=== PATIENT | male | born 1945 | race African-American/Black ===

== ENCOUNTER 2016-06-17 10:44 | Emergency (ER) | payer MEDICARE, MEDICAID ==
[~2016-06-17] VITALS: Ht 177.8 cm; Wt 59.0 kg
[2016-06-17 10:48] VITALS: BP 141/83
== END 2016-06-17 13:10 | disposition home or self-care (01) ==
LOC: ER 11:21
DX: J02.8 Acute pharyngitis due to other specified organisms (principal); J44.9 Chronic obstructive pulmonary disease, unspecified; I10 Essential (primary) hypertension; K75.9 Inflammatory liver disease, unspecified; F17.200 Nicotine dependence, unspecified, uncomplicated; Z88.0 Allergy status to penicillin
CPT/HCPCS: 87070; 87430; 87804; 99284

== ENCOUNTER 2017-10-13 03:23 | Inpatient (IN) | payer MEDICARE, MEDICAID ==
[~2017-10-13] VITALS: Ht 177.8 cm; Wt 59.9 kg
[~2017-10-13 03:23] MED LIST: ALBU6.7H INH; ASPI-1159 PO; FLUT1DIS3 IH
[2017-10-13] MEDS ORDERED: METHYLPREDNISOLONE SOD SUCC 125 MG/2 ML VIAL IV STA (03:31)
[2017-10-13] MEDS ORDERED: ALBUTEROL (0.083%) 2.5MG/3ML NEB HHN STA (03:31)
[2017-10-13] MEDS ORDERED: IPRATROPIUM BROMIDE (0.02%) 0.5MG/2.5ML NEB HHN STA (03:31)
[2017-10-13] MEDS ORDERED: NITROGLYCERIN OINT 1GM/INCH UDPKT TD ONE (03:45)
[2017-10-13] MEDS ORDERED: MAGNESIUM 2 G PREMIX 50 ML IV ONE (03:45)
[2017-10-13] MEDS ORDERED: LEVOFLOXACIN 750MG PREMIX 150 ML IV ONE (03:45)
[2017-10-13] MEDS ORDERED: ASPIRIN 81MG TABLET PO ONE (03:45)
[2017-10-13 04:39] LABS: HEMATOCRIT. 40.6 % (42.0-52.0); HEMOGLOBIN. 13.5 g/dL (14.0-18.0); MEAN CORPUSCULAR HEMOGLOBIN 33.1 pg (28.0-32.0); MEAN CORPUSCULAR VOLUME 99.7 fL (80.0-94.0); MEAN PLATELET VOLUME 10.1 fl (7.4-10.4); PLATELET 151 x1000/uL (130-400); RED BLOOD CELL COUNT 4.07 mill/uL (4.7-6.1); RED CELL DISTRIBUTION WIDTH 13.8 % (11.6-14.6)
[2017-10-13 04:43] LABS: BG BASE EXCESS 4.8 mmol/L (-2.0-2.0); BG CARBOXYHEMOGLOBIN 1.1 % (0.5-1.5); BG DEOXYHEMOGLOBIN 4.5 % (0.0-5.0); BG FRACTION INSPIRED OXYGEN 28; BG HCO3 ACT 32.1 mmol/L (22.0-26.0); BG METHEMOGLOBIN 0.3 % (0.0-1.5); BG OXYGEN SATURATION 95.4 % (92.0-98.5); BG OXYHEMOGLOBIN 94.1 % (94.0-97.0); BG PCO2 59.5 mmHg (35.0-45.0); BG PO2 81.6 mmHg (75.0-100.0); BG SAMPLE SITE RIGHT RADIAL; BG TOTAL HEMOGLOBIN 13.9 g/dL (12.0-18.0); BG VENT MODE NC
[2017-10-13 04:46] LABS: CHLORIDE 98 mEq/L (98-107)
[2017-10-13 04:47] LABS: INR 1.1
[2017-10-13 04:50] LABS: ETHANOL BLOOD < 10 mg/dL
[2017-10-13 06:27] LABS: PLATELET ESTIMATE NORMAL
[2017-10-13 06:59] LABS: *COCAINE SCREEN URINE NEGATIVE (NEGATIVE); METHADONE URINE SCREEN NEGATIVE (NEGATIVE); OPIATES URINE SCREEN NEGATIVE (NEGATIVE); PHENCYCLIDINE URINE SCREEN NEGATIVE (NEGATIVE)
[2017-10-13 07:00] LABS: CANNABINOID URINE SCREEN PRESUMTIVE POSITIVE (NEGATIVE)
[2017-10-13 07:01] LABS: *AMPHETAMINES SCREEN URINE NEGATIVE (NEGATIVE); *BARBITURATES SCREEN URINE NEGATIVE (NEGATIVE); *BENZODIAZEPINES SCREEN URINE NEGATIVE (NEGATIVE)
[2017-10-13 10:30] VITALS: BP 111/58
[2017-10-13 12:00] VITALS: BP 111/58
[2017-10-13] MEDS ORDERED: ONDANSETRON HCL 4MG/2ML VIAL IV PRN (12:15)
[2017-10-13] MEDS ORDERED: IPRATROPIUM/ALBUTEROL 0.5-3(2.5)MG/3ML NEB INH PRN (12:15)
[2017-10-13] MEDS ORDERED: NA PHOS,M-B/NA PHOS,DI-BA ENEMA 118ML PR PRN (12:15)
[2017-10-13] MEDS ORDERED: NICOTINE 14MG PATCH TD NR (12:15)
[2017-10-13] MEDS ORDERED: DIPHENHYDRAMINE 50MG/ML VIAL IV PRN (12:15)
[2017-10-13] MEDS ORDERED: ACETAMINOPHEN 325MG TABLET PO PRN (12:15)
[2017-10-13] MEDS ORDERED: ACETAMINOPHEN 650MG SUPP PR PRN (12:15)
[2017-10-13] MEDS ORDERED: POTASSIUM CHLORIDE 20MEQ TABLET SR PO NR (12:15)
[2017-10-13] MEDS ORDERED: MAGNESIUM/ALUMINUM HYDROXIDE/SIMETHICONE 30ML UDC PO PRN (12:15)
[2017-10-13] MEDS ORDERED: ONDANSETRON 4MG ODT PO PRN (13:30)
[2017-10-13] MEDS: METHYLPREDNISOLONE SOD SUCC 40 MG/ML VIAL IV SCH ×2 (14:41→20:45)
[2017-10-13] MEDS: ENOXAPARIN 40MG/0.4ML SYR SUBCUT SCH (14:50)
[2017-10-13] MEDS: HYDROCODONE/ACETAMINOPHEN 5/325MG TABLET PO PRN ×2 (14:51→20:45)
[2017-10-13 16:00] VITALS: BP 107/56
[2017-10-13 20:00] VITALS: BP 112/64
[2017-10-13] MEDS: IPRATROPIUM/ALBUTEROL 0.5-3(2.5)MG/3ML NEB HHN SCH (20:26)
[2017-10-13 23:01] LABS: CLARITY URINE CLEAR (CLEAR); COLOR URINE YELLOW (YELLOW); KETONES URINE NEGATIVE (NEGATIVE); LEUKOCYTE ESTERASE URINE NEGATIVE (NEGATIVE); NITRITE URINE NEGATIVE (NEGATIVE); OCCULT BLOOD URINE NEGATIVE (NEGATIVE); PH URINE 6.5 (4.5-8.0); PROTEIN URINE NEGATIVE (NEGATIVE); SPECIFIC GRAVITY URINE 1.015 (1.005-1.030)
[2017-10-14] VITALS: BP 112/63
[2017-10-14] MEDS: IPRATROPIUM/ALBUTEROL 0.5-3(2.5)MG/3ML NEB HHN SCH ×4 (01:48→20:36)
[2017-10-14 04:00] VITALS: BP 95/53
[2017-10-14] MEDS: METHYLPREDNISOLONE SOD SUCC 40 MG/ML VIAL IV SCH ×2 (05:04→20:35)
[2017-10-14] MEDS: LEVOFLOXACIN 500MG PREMIX 100 ML IV SCH (05:05)
[2017-10-14] MEDS: HYDROCODONE/ACETAMINOPHEN 5/325MG TABLET PO PRN ×3 (05:10→20:35)
[2017-10-14 07:53] LABS: HEMATOCRIT. 40.7 % (42.0-52.0); HEMOGLOBIN. 13.5 g/dL (14.0-18.0); MEAN CORPUSCULAR VOLUME 99.3 fL (80.0-94.0); MEAN PLATELET VOLUME 10.3 fl (7.4-10.4); PLATELET 161 x1000/uL (130-400); RED BLOOD CELL COUNT 4.09 mill/uL (4.7-6.1); RED CELL DISTRIBUTION WIDTH 13.7 % (11.6-14.6)
[2017-10-14 08:00] VITALS: BP 113/73
[2017-10-14 08:35] LABS: CHLORIDE 98 mEq/L (98-107)
[2017-10-14 08:44] LABS: LDL CHOLESTEROL 64 mg/dL (5-100)
[2017-10-14 08:45] LABS: HDL CHOLESTEROL 42 mg/dL (40-59)
[2017-10-14] MEDS: NICOTINE 14MG PATCH TD SCH (09:57)
[2017-10-14] MEDS: ENOXAPARIN 40MG/0.4ML SYR SUBCUT SCH (09:58)
[2017-10-14 11:10] LABS: HEPATITIS B SURFACE ANTIGEN NEGATIVE
[2017-10-14 11:15] LABS: HEPATITIS B CORE AB IGM NEGATIVE
[2017-10-14 11:17] LABS: HEPATITIS A AB IGM NEGATIVE (NEGATIVE)
[2017-10-14 12:00] VITALS: BP 104/49
[2017-10-14 14:28] LABS: PLATELET ESTIMATE NORMAL
[2017-10-14 16:00] VITALS: BP 98/54
[2017-10-14] MEDS: CEFTRIAXONE 1 G PREMIX 50 ML IV SCH (16:15)
[2017-10-14 20:00] VITALS: BP 110/59
[2017-10-15] VITALS (7 sets, daily range): BP systolic 83–127; BP diastolic 46–77
[2017-10-15] MEDS: HYDROCODONE/ACETAMINOPHEN 5/325MG TABLET PO PRN ×4 (01:42→20:35)
[2017-10-15] MEDS: IPRATROPIUM/ALBUTEROL 0.5-3(2.5)MG/3ML NEB HHN SCH ×4 (01:52→21:33)
[2017-10-15] MEDS: LEVOFLOXACIN 500MG PREMIX 100 ML IV SCH (03:34)
[2017-10-15 08:52] LABS: HEMATOCRIT. 40.9 % (42.0-52.0); HEMOGLOBIN. 13.6 g/dL (14.0-18.0); MEAN CORPUSCULAR HEMOGLOBIN 33.2 pg (28.0-32.0); MEAN CORPUSCULAR VOLUME 99.7 fL (80.0-94.0); MEAN PLATELET VOLUME 10.3 fl (7.4-10.4); PLATELET 172 x1000/uL (130-400); RED CELL DISTRIBUTION WIDTH 14.1 % (11.6-14.6)
[2017-10-15] MEDS: METHYLPREDNISOLONE SOD SUCC 40 MG/ML VIAL IV SCH (10:08)
[2017-10-15] MEDS: NICOTINE 14MG PATCH TD SCH (10:09)
[2017-10-15] MEDS: ENOXAPARIN 40MG/0.4ML SYR SUBCUT SCH (10:09)
[2017-10-15 11:05] LABS: PLATELET ESTIMATE NORMAL
[2017-10-15] MEDS: CEFTRIAXONE 1 G PREMIX 50 ML IV SCH (15:38)
[2017-10-15] MEDS ORDERED: IOHEXOL-300 100 ML BOTTLE ONE (19:10)
[2017-10-16] VITALS: BP 115/69
[2017-10-16] MEDS: IPRATROPIUM/ALBUTEROL 0.5-3(2.5)MG/3ML NEB HHN SCH ×4 (01:02→20:04)
[2017-10-16] MEDS: LEVOFLOXACIN 500MG PREMIX 100 ML IV SCH (03:52)
[2017-10-16 04:00] VITALS: BP 100/50
[2017-10-16 07:18] LABS: HEMATOCRIT. 40.1 % (42.0-52.0); HEMOGLOBIN. 13.2 g/dL (14.0-18.0); MEAN CORPUSCULAR HEMOGLOBIN 32.9 pg (28.0-32.0); MEAN CORPUSCULAR VOLUME 99.6 fL (80.0-94.0); PLATELET 159 x1000/uL (130-400); RED BLOOD CELL COUNT 4.03 mill/uL (4.7-6.1); RED CELL DISTRIBUTION WIDTH 13.9 % (11.6-14.6)
[2017-10-16 07:50] VITALS: BP 107/56
[2017-10-16] MEDS: ENOXAPARIN 40MG/0.4ML SYR SUBCUT SCH (09:06)
[2017-10-16] MEDS: NICOTINE 14MG PATCH TD SCH (09:06)
[2017-10-16 11:51] VITALS: BP 109/64
[2017-10-16 13:47] LABS: PLATELET ESTIMATE NORMAL
[2017-10-16 16:06] VITALS: BP 108/68
[2017-10-16 20:00] VITALS: BP 126/66
[2017-10-17] VITALS (7 sets, daily range): BP systolic 108–120; BP diastolic 59–81
[2017-10-17] MEDS: IPRATROPIUM/ALBUTEROL 0.5-3(2.5)MG/3ML NEB HHN SCH ×4 (00:19→21:04)
[2017-10-17] MEDS: NICOTINE 14MG PATCH TD SCH (08:53)
[2017-10-17] MEDS: ENOXAPARIN 40MG/0.4ML SYR SUBCUT SCH (08:53)
[2017-10-17] MEDS: HYDROCODONE/ACETAMINOPHEN 5/325MG TABLET PO PRN ×2 (09:35→19:05)
[2017-10-17] MEDS ORDERED: LEVOFLOXACIN 500MG TABLET PO SCH (11:00)
[2017-10-17 12:31] LABS: HEMATOCRIT 42.4 % (42.0-52.0); HEMOGLOBIN 14.3 g/dL (14.0-18.0); MEAN CORPUSCULAR HEMOGLOBIN 33.3 pg (28.0-32.0); MEAN CORPUSCULAR VOLUME 98.9 fL (80.0-94.0); PLATELET 162 x1000/uL (130-400); RED BLOOD CELL COUNT 4.28 mill/uL (4.7-6.1); RED CELL DISTRIBUTION WIDTH 13.8 % (11.6-14.6)
[2017-10-17 13:05] LABS: CHLORIDE 97 mEq/L (98-107)
[2017-10-18] MEDS ORDERED: METHYLPREDNISOLONE SOD SUCC 40 MG/ML VIAL IV SCH (09:00)
== END 2017-10-17 22:25 | DRG 189 ==
LOC: ER 03:23 → ENRESERV 08:01 → 5WST 10:32
PROVIDERS: ADMIT Internal Medicine; ATTEND Internal Medicine
DX: J96.02 Acute respiratory failure with hypercapnia (principal); J44.1 Chronic obstructive pulmonary disease with (acute) exacerbation; E46 Unspecified protein-calorie malnutrition; R04.2 Hemoptysis; Z68.1 Body mass index [BMI] 19.9 or less, adult; J20.9 Acute bronchitis, unspecified; I10 Essential (primary) hypertension; E87.6 Hypokalemia; D64.9 Anemia, unspecified; F17.210 Nicotine dependence, cigarettes, uncomplicated; T38.0X5A Adverse effect of glucocorticoids and synthetic analogues, initial encounter; R73.9 Hyperglycemia, unspecified; G62.9 Polyneuropathy, unspecified; G89.29 Other chronic pain; M54.9 Dorsalgia, unspecified; F12.90 Cannabis use, unspecified, uncomplicated; B19.20 Unspecified viral hepatitis C without hepatic coma; Y92.89 Other specified places as the place of occurrence of the external cause; Z91.19 Patient's noncompliance with other medical treatment and regimen; Z88.0 Allergy status to penicillin; Z79.82 Long term (current) use of aspirin; Z86.19 Personal history of other infectious and parasitic diseases
CPT/HCPCS: 36415; 36600; 71045; 71260; 80048; 80053; 80061; 80305; 81003; 82375; 82805; 83605; 83690; 83880; 84443; 84484; 85025; 85027; 85610; 86705; 86709; 86803; 87040; 87070; 87086; 87340; 93005; 96365; 96366; 96367; 96375; 99285; G0482; J0696; J1200; J1650; J1956; J2920; J2930; J3475; J7050; J7611; J7620; Q9967

== ENCOUNTER 2017-11-01 09:23 | Emergency (ER) | payer MEDICARE, MEDICAID ==
[~2017-11-01] VITALS: Ht 177.8 cm; Wt 57.0 kg
[2017-11-01] MEDS ORDERED: HYDROCODONE/ACETAMINOPHEN 5/325MG TABLET PO ONE (13:00)
[2017-11-01 14:13] VITALS: BP 109/74
== END 2017-11-01 14:17 | disposition home or self-care (01) ==
LOC: ER 09:23
DX: S93.601A Unspecified sprain of right foot, initial encounter (principal); S93.401A Sprain of unspecified ligament of right ankle, initial encounter; R03.0 Elevated blood-pressure reading, without diagnosis of hypertension; W01.0XXA Fall on same level from slipping, tripping and stumbling without subsequent striking against object, initial encounter; Y93.K1 Activity, walking an animal; Y92.89 Other specified places as the place of occurrence of the external cause; Z72.0 Tobacco use; Z88.0 Allergy status to penicillin
CPT/HCPCS: 73610; 73630; 99284

== ENCOUNTER 2017-11-05 09:35 | Emergency (ER) | payer MEDICARE, MEDICAID ==
[~2017-11-05] VITALS: Ht 172.7 cm; Wt 59.3 kg
[2017-11-05 10:17] VITALS: BP 126/71
[2017-11-05] MEDS ORDERED: TRAMADOL HCL/ACETAMINOPHEN 37.5/325MG TABLET PO ONE (12:00)
== END 2017-11-05 13:05 | disposition home or self-care (01) ==
LOC: ER 12:54
DX: S93.491A Sprain of other ligament of right ankle, initial encounter (principal); J44.9 Chronic obstructive pulmonary disease, unspecified; W18.39XA Other fall on same level, initial encounter; Y93.89 Activity, other specified; Y92.89 Other specified places as the place of occurrence of the external cause; Y99.8 Other external cause status; Z79.82 Long term (current) use of aspirin; Z88.0 Allergy status to penicillin; Z79.899 Other long term (current) drug therapy; Z98.890 Other specified postprocedural states
CPT/HCPCS: 99283

== ENCOUNTER 2017-11-22 11:13 | Emergency (ER) | payer MEDICARE, MEDICAID ==
[~2017-11-22] VITALS: Ht 177.8 cm; Wt 58.0 kg
[2017-11-22 11:20] VITALS: BP 105/67
== END 2017-11-22 15:43 | disposition home or self-care (01) ==
LOC: ER 11:13
DX: Z76.0 Encounter for issue of repeat prescription (principal); J44.9 Chronic obstructive pulmonary disease, unspecified; Z88.0 Allergy status to penicillin; Z79.82 Long term (current) use of aspirin
CPT/HCPCS: 99283

== ENCOUNTER 2017-11-30 01:48 | Inpatient (IN) | payer MEDICARE, MEDICAID ==
[~2017-11-30] VITALS: Ht 177.8 cm; Wt 58.5 kg
[2017-11-30] MEDS ORDERED: IPRATROPIUM BROMIDE (0.02%) 0.5MG/2.5ML NEB HHN STA (01:57)
[2017-11-30] MEDS ORDERED: METHYLPREDNISOLONE SOD SUCC 125 MG/2 ML VIAL IV STA (01:57)
[2017-11-30] MEDS ORDERED: MAGNESIUM 2 G PREMIX 50 ML IV ONE (02:00)
[2017-11-30] MEDS ORDERED: IPRATROPIUM BROMIDE (0.02%) 0.5MG/2.5ML NEB HHN SCH (02:16)
[2017-11-30] MEDS: ALBUTEROL (0.083%) 2.5MG/3ML NEB HHN SCH ×3 (02:20→03:20)
[2017-11-30 02:55] LABS: BASOPHILS % 0.9 % (0.0-2.0); EOSINOPHILS % 13.4 % (0.0-5.0); HEMOGLOBIN. 14.8 g/dL (14.0-18.0); LYMPHOCYTES % 38.4 % (20.0-50.0); MEAN CORPUSCULAR HEMOGLOBIN 33.5 pg (28.0-32.0); MEAN CORPUSCULAR VOLUME 99.7 fL (80.0-94.0); MEAN PLATELET VOLUME 9.8 fl (7.4-10.4); NEUTROPHILS % 34.3 % (40.0-76.0); PLATELET 170 x1000/uL (130-400); RED BLOOD CELL COUNT 4.41 mill/uL (4.7-6.1); RED CELL DISTRIBUTION WIDTH 13.8 % (11.6-14.6)
[2017-11-30 02:57] LABS: CHLORIDE 98 mEq/L (98-107)
[2017-11-30] MEDS ORDERED: SODIUM CHLORIDE 0.9% 1,000 ML IV SCH (04:31)
[2017-11-30] MEDS ORDERED: CLONIDINE 0.1MG TABLET PO PRN (08:45)
[2017-11-30] MEDS ORDERED: GUAIFENESIN 200MG/10ML SUGAR FREE UDC PO PRN (08:45)
[2017-11-30] MEDS ORDERED: ACETAMINOPHEN 650MG SUPP PR PRN (08:45)
[2017-11-30] MEDS ORDERED: DIPHENHYDRAMINE 50MG/ML VIAL IV PRN (08:45)
[2017-11-30] MEDS ORDERED: ACETAMINOPHEN 650MG/20.3ML UDC GT PRN (08:45)
[2017-11-30] MEDS ORDERED: NA PHOS,M-B/NA PHOS,DI-BA ENEMA 118ML PR PRN (08:45)
[2017-11-30] MEDS ORDERED: MAGNESIUM/ALUMINUM HYDROXIDE/SIMETHICONE 30ML UDC PO PRN (08:45)
[2017-11-30] MEDS ORDERED: ACETAMINOPHEN 325MG TABLET PO PRN (08:45)
[2017-11-30] MEDS ORDERED: IPRATROPIUM/ALBUTEROL 0.5-3(2.5)MG/3ML NEB INH PRN (08:45)
[2017-11-30] MEDS ORDERED: ONDANSETRON HCL 4MG/2ML INJ IV PRN (08:45)
[2017-11-30] MEDS ORDERED: LORAZEPAM 0.5MG TABLET PO PRN (08:45)
[2017-11-30 08:55] VITALS: BP 125/61
[2017-11-30 12:00] VITALS: BP 118/63
[2017-11-30] MEDS: METHYLPREDNISOLONE SOD SUCC 40 MG/ML VIAL IV SCH ×2 (12:11→18:50)
[2017-11-30] MEDS: ENOXAPARIN 40MG/0.4ML SYR SUBCUT SCH (12:11)
[2017-11-30] MEDS: SODIUM CHLORIDE 0.9% INJ 3ML FLUSH IVF SCH ×2 (12:12→20:22)
[2017-11-30] MEDS: IPRATROPIUM/ALBUTEROL 0.5-3(2.5)MG/3ML NEB INH SCH ×3 (12:17→20:43)
[2017-11-30] MEDS ORDERED: LIDOCAINE HCL/PF 1% 2ML VIAL ONE (13:19)
[2017-11-30 13:29] LABS: CLARITY URINE CLEAR (CLEAR); COLOR URINE YELLOW (YELLOW); KETONES URINE NEGATIVE (NEGATIVE); LEUKOCYTE ESTERASE URINE 1+ (NEGATIVE); NITRITE URINE NEGATIVE (NEGATIVE); OCCULT BLOOD URINE NEGATIVE (NEGATIVE); PROTEIN URINE NEGATIVE (NEGATIVE); SPECIFIC GRAVITY URINE 1.018 (1.005-1.030); UROBILINOGEN URINE 0.2 E.U./dL (0.2-1.0)
[2017-11-30 13:32] LABS: CHLORIDE 99 mEq/L (98-107)
[2017-11-30 14:02] LABS: CANNABINOID URINE SCREEN PRESUMTIVE POSITIVE (NEGATIVE); PHENCYCLIDINE URINE SCREEN NEGATIVE (NEGATIVE)
[2017-11-30 14:03] LABS: *AMPHETAMINES SCREEN URINE NEGATIVE (NEGATIVE); *BARBITURATES SCREEN URINE NEGATIVE (NEGATIVE); *BENZODIAZEPINES SCREEN URINE NEGATIVE (NEGATIVE); *COCAINE SCREEN URINE NEGATIVE (NEGATIVE); METHADONE URINE SCREEN NEGATIVE (NEGATIVE); OPIATES URINE SCREEN NEGATIVE (NEGATIVE)
[2017-11-30 16:00] VITALS: BP 113/54
[2017-11-30] MEDS ORDERED: DEXTROSE 50% WATER 50ML SYRINGE IV PRN (18:00)
[2017-11-30] MEDS: INSULIN LISPRO 100 UNITS/ML SUBCUT SCH ×2 (18:10→20:21)
[2017-11-30 18:14] LABS: BG BASE EXCESS 5.3 mmol/L (-2.0-2.0); BG DEOXYHEMOGLOBIN 8.7 % (0.0-5.0); BG HCO3 ACT 30.8 mmol/L (22.0-26.0); BG METHEMOGLOBIN 0.4 % (0.0-1.5); BG OXYGEN SATURATION 91.2 % (92.0-98.5); BG OXYHEMOGLOBIN 89.9 % (94.0-97.0); BG PH 7.425 (7.350-7.450); BG PO2 59.1 mmHg (75.0-100.0); BG SAMPLE SITE RIGHT RADIAL; BG TOTAL HEMOGLOBIN 14.4 g/dL (12.0-18.0); BG VENT MODE ROOM AIR
[2017-11-30 20:00] VITALS: BP 117/68
[2017-11-30] MEDS: FAMOTIDINE 20MG/2ML VIAL IV SCH (20:21)
[2017-11-30] MEDS: BLOOD SUGAR DIAGNOSTIC STRIP TEST SCH (20:22)
[2017-11-30] MEDS: HYDROCODONE/ACETAMINOPHEN 5/325MG TABLET PO PRN (20:23)
[2017-11-30] MEDS: BUDESONIDE 0.5MG/2ML NEB HHN SCH (20:44)
[2017-12-01] VITALS: BP 99/54
[2017-12-01] MEDS: METHYLPREDNISOLONE SOD SUCC 40 MG/ML VIAL IV SCH ×3 (01:19→17:41)
[2017-12-01] MEDS: IPRATROPIUM/ALBUTEROL 0.5-3(2.5)MG/3ML NEB INH SCH ×4 (01:21→20:53)
[2017-12-01 04:00] VITALS: BP 98/53
[2017-12-01] MEDS: SODIUM CHLORIDE 0.9% INJ 3ML FLUSH IVF SCH ×3 (06:06→20:38)
[2017-12-01 06:46] LABS: CHLORIDE 99 mEq/L (98-107)
[2017-12-01 06:49] LABS: HEMATOCRIT. 38.9 % (42.0-52.0); HEMOGLOBIN. 12.9 g/dL (14.0-18.0); MEAN CORPUSCULAR HEMOGLOBIN 32.9 pg (28.0-32.0); MEAN PLATELET VOLUME 10.4 fl (7.4-10.4); PLATELET 160 x1000/uL (130-400); RED BLOOD CELL COUNT 3.93 mill/uL (4.7-6.1); RED CELL DISTRIBUTION WIDTH 13.8 % (11.6-14.6)
[2017-12-01 07:00] LABS: LDL CHOLESTEROL 64 mg/dL (5-100)
[2017-12-01 07:01] LABS: HDL CHOLESTEROL 42 mg/dL (40-59)
[2017-12-01] MEDS: BLOOD SUGAR DIAGNOSTIC STRIP TEST SCH ×4 (07:40→20:37)
[2017-12-01 08:00] VITALS: BP 97/55
[2017-12-01] MEDS: INSULIN LISPRO 100 UNITS/ML SUBCUT SCH ×4 (08:10→20:36)
[2017-12-01 09:36] LABS: PLATELET ESTIMATE NORMAL
[2017-12-01] MEDS: FAMOTIDINE 20MG/2ML VIAL IV SCH ×2 (09:38→20:36)
[2017-12-01] MEDS: LORATADINE 10MG TABLET PO SCH (09:38)
[2017-12-01] MEDS: ENOXAPARIN 40MG/0.4ML SYR SUBCUT SCH (09:39)
[2017-12-01] MEDS: BUDESONIDE 0.5MG/2ML NEB HHN SCH ×2 (09:55→20:53)
[2017-12-01] MEDS: SODIUM CHLORIDE 0.45% 1,000 ML IV SCH ×2 (10:30→22:52)
[2017-12-01 12:00] VITALS: BP 105/54
[2017-12-01] MEDS: HYDROCODONE/ACETAMINOPHEN 5/325MG TABLET PO PRN ×2 (12:31→20:36)
[2017-12-01] MEDS: LEVOFLOXACIN 750MG PREMIX 150 ML IV SCH (13:31)
[2017-12-01 16:00] VITALS: BP 112/65
[2017-12-01] MEDS: MONTELUKAST SODIUM 10MG TABLET PO SCH (17:41)
[2017-12-01 20:00] VITALS: BP 117/65
[2017-12-02 00:05] VITALS: BP 127/67
[2017-12-02] MEDS: IPRATROPIUM/ALBUTEROL 0.5-3(2.5)MG/3ML NEB INH SCH ×3 (01:07→21:48)
[2017-12-02] MEDS: METHYLPREDNISOLONE SOD SUCC 40 MG/ML VIAL IV SCH ×2 (02:18→09:42)
[2017-12-02 04:00] VITALS: BP 109/57
[2017-12-02] MEDS: SODIUM CHLORIDE 0.9% INJ 3ML FLUSH IVF SCH ×3 (05:04→21:39)
[2017-12-02] MEDS: HYDROCODONE/ACETAMINOPHEN 5/325MG TABLET PO PRN ×3 (05:06→22:51)
[2017-12-02 07:34] LABS: HEMATOCRIT. 41.3 % (42.0-52.0); HEMOGLOBIN. 13.9 g/dL (14.0-18.0); MEAN CORPUSCULAR HEMOGLOBIN 33.5 pg (28.0-32.0); MEAN CORPUSCULAR VOLUME 99.8 fL (80.0-94.0); MEAN PLATELET VOLUME 10.3 fl (7.4-10.4); PLATELET 185 x1000/uL (130-400); RED BLOOD CELL COUNT 4.14 mill/uL (4.7-6.1); RED CELL DISTRIBUTION WIDTH 13.7 % (11.6-14.6)
[2017-12-02 07:52] LABS: CHLORIDE 100 mEq/L (98-107)
[2017-12-02] MEDS: INSULIN LISPRO 100 UNITS/ML SUBCUT SCH ×4 (07:56→21:00)
[2017-12-02] MEDS: BLOOD SUGAR DIAGNOSTIC STRIP TEST SCH ×4 (07:56→21:38)
[2017-12-02 08:00] VITALS: BP 119/67
[2017-12-02] MEDS: FAMOTIDINE 20MG/2ML VIAL IV SCH ×2 (09:42→21:41)
[2017-12-02] MEDS: HYDROCODONE/ACETAMINOPHEN 10/325MG TABLET PO PRN (09:43)
[2017-12-02] MEDS: LORATADINE 10MG TABLET PO SCH (09:43)
[2017-12-02] MEDS: ENOXAPARIN 40MG/0.4ML SYR SUBCUT SCH (09:45)
[2017-12-02] MEDS: BUDESONIDE 0.5MG/2ML NEB HHN SCH ×2 (10:54→21:47)
[2017-12-02 11:04] LABS: PLATELET ESTIMATE NORMAL
[2017-12-02] MEDS: SODIUM CHLORIDE 0.45% 1,000 ML IV SCH (11:24)
[2017-12-02 12:00] VITALS: BP 106/46
[2017-12-02] MEDS: LEVOFLOXACIN 750MG PREMIX 150 ML IV SCH (13:11)
[2017-12-02] MEDS: SODIUM CHLORIDE 0.9% 1,000 ML IV SCH (14:33)
[2017-12-02] MEDS: CLINDAMYCIN 300 MG in DEXTROSE 5% WATER 50 ML IV SCH ×2 (15:40→21:41)
[2017-12-02 15:42] VITALS: BP 104/59
[2017-12-02] MEDS: MONTELUKAST SODIUM 10MG TABLET PO SCH (17:31)
[2017-12-02 20:00] VITALS: BP 112/82
[2017-12-03] MEDS: IPRATROPIUM/ALBUTEROL 0.5-3(2.5)MG/3ML NEB INH SCH ×2 (02:12→19:50)
[2017-12-03 04:00] VITALS: BP 120/62
[2017-12-03] MEDS: SODIUM CHLORIDE 0.9% INJ 3ML FLUSH IVF SCH ×3 (04:37→21:06)
[2017-12-03] MEDS: CLINDAMYCIN 300 MG in DEXTROSE 5% WATER 50 ML IV SCH ×3 (05:34→20:40)
[2017-12-03] MEDS: BLOOD SUGAR DIAGNOSTIC STRIP TEST SCH ×4 (05:34→20:40)
[2017-12-03] MEDS: HYDROCODONE/ACETAMINOPHEN 5/325MG TABLET PO PRN ×4 (06:39→22:48)
[2017-12-03 07:39] LABS: HEMOGLOBIN. 12.9 g/dL (14.0-18.0); MEAN CORPUSCULAR HEMOGLOBIN 32.6 pg (28.0-32.0); MEAN PLATELET VOLUME 10.2 fl (7.4-10.4); PLATELET 166 x1000/uL (130-400); RED BLOOD CELL COUNT 3.94 mill/uL (4.7-6.1); RED CELL DISTRIBUTION WIDTH 13.7 % (11.6-14.6)
[2017-12-03 08:00] VITALS: BP 125/70
[2017-12-03] MEDS: INSULIN LISPRO 100 UNITS/ML SUBCUT SCH ×4 (08:10→21:00)
[2017-12-03] MEDS: LORATADINE 10MG TABLET PO SCH (08:24)
[2017-12-03] MEDS: FAMOTIDINE 20MG/2ML VIAL IV SCH ×2 (08:25→20:40)
[2017-12-03 10:22] LABS: PLATELET ESTIMATE NORMAL
[2017-12-03] MEDS: ENOXAPARIN 40MG/0.4ML SYR SUBCUT SCH (10:29)
[2017-12-03 12:00] VITALS: BP 124/67
[2017-12-03] MEDS: LEVOFLOXACIN 750MG PREMIX 150 ML IV SCH (13:17)
[2017-12-03] MEDS: SODIUM CHLORIDE 0.9% 1,000 ML IV SCH (13:17)
[2017-12-03] MEDS: MONTELUKAST SODIUM 10MG TABLET PO SCH (17:06)
[2017-12-03 20:00] VITALS: BP 142/71
[2017-12-04] VITALS: BP 112/75
[2017-12-04] MEDS: IPRATROPIUM/ALBUTEROL 0.5-3(2.5)MG/3ML NEB INH SCH ×4 (01:40→20:09)
[2017-12-04 04:00] VITALS: BP 115/59
[2017-12-04] MEDS: SODIUM CHLORIDE 0.9% INJ 3ML FLUSH IVF SCH ×3 (05:26→20:57)
[2017-12-04] MEDS: BLOOD SUGAR DIAGNOSTIC STRIP TEST SCH ×4 (05:26→20:52)
[2017-12-04] MEDS: CLINDAMYCIN 300 MG in DEXTROSE 5% WATER 50 ML IV SCH (05:51)
[2017-12-04 07:25] LABS: BASOPHILS % 0.4 % (0.0-2.0); EOSINOPHILS % 1.5 % (0.0-5.0); HEMATOCRIT. 40.3 % (42.0-52.0); HEMOGLOBIN. 13.6 g/dL (14.0-18.0); LYMPHOCYTES % 27.7 % (20.0-50.0); MEAN CORPUSCULAR HEMOGLOBIN 33.3 pg (28.0-32.0); MONOCYTES % 14.4 % (2.0-8.0); PLATELET 153 x1000/uL (130-400); RED BLOOD CELL COUNT 4.08 mill/uL (4.7-6.1); RED CELL DISTRIBUTION WIDTH 13.7 % (11.6-14.6)
[2017-12-04 08:00] VITALS: BP 110/66
[2017-12-04] MEDS ORDERED: BUDESONIDE 0.5MG/2ML NEB ONE (08:06)
[2017-12-04] MEDS: INSULIN LISPRO 100 UNITS/ML SUBCUT SCH ×4 (08:10→20:58)
[2017-12-04] MEDS: BUDESONIDE 0.5MG/2ML NEB HHN SCH (08:56)
[2017-12-04] MEDS: FAMOTIDINE 20MG/2ML VIAL IV SCH ×2 (10:10→20:52)
[2017-12-04] MEDS: ENOXAPARIN 40MG/0.4ML SYR SUBCUT SCH (10:10)
[2017-12-04] MEDS: HYDROCODONE/ACETAMINOPHEN 10/325MG TABLET PO PRN ×2 (10:11→16:42)
[2017-12-04] MEDS: LORATADINE 10MG TABLET PO SCH (10:13)
[2017-12-04 11:49] LABS: BG BASE EXCESS 5.4 mmol/L (-2.0-2.0); BG CARBOXYHEMOGLOBIN 0.9 % (0.5-1.5); BG DEOXYHEMOGLOBIN 9.1 % (0.0-5.0); BG FRACTION INSPIRED OXYGEN 21; BG HCO3 ACT 30.5 mmol/L (22.0-26.0); BG METHEMOGLOBIN 0.3 % (0.0-1.5); BG OXYGEN SATURATION 90.8 % (92.0-98.5); BG OXYHEMOGLOBIN 89.7 % (94.0-97.0); BG PCO2 45.9 mmHg (35.0-45.0); BG PO2 63.9 mmHg (75.0-100.0); BG SAMPLE SITE RIGHT BRACHIAL; BG TOTAL HEMOGLOBIN 14.5 g/dL (12.0-18.0); BG VENT MODE ROOM AIR
[2017-12-04 12:00] VITALS: BP 100/69
[2017-12-04] MEDS ORDERED: LACTULOSE 20G/30ML UDC PO NR (14:45)
[2017-12-04] MEDS ORDERED: BISACODYL 5MG TABLET PO NR (14:45)
[2017-12-04 16:00] VITALS: BP 113/68
[2017-12-04] MEDS ORDERED: LEVOFLOXACIN 250MG TABLET PO SCH (17:00)
[2017-12-04] MEDS ORDERED: CLINDAMYCIN HCL 150MG CAPSULE PO SCH (17:00)
[2017-12-04] MEDS: MONTELUKAST SODIUM 10MG TABLET PO SCH (17:28)
[2017-12-04 20:22] VITALS: BP 138/83
== END 2017-12-04 22:55 | disposition home or self-care (01) | DRG 189 ==
LOC: ER 01:48 → 7WST 04:32 → EDBEDREQ 05:13 → EDBEDREQTM 05:13 → ENRESERV 07:03 → 7WST 11:03
PROVIDERS: ADMIT Internal Medicine; ATTEND Internal Medicine
PROC: 5A09357 Assistance with Respiratory Ventilation, Less than 24 Consecutive Hours, Continuous Positive Airway Pressure (ICD-10-PCS; principal; 2017-11-30)
DX: J96.20 Acute and chronic respiratory failure, unspecified whether with hypoxia or hypercapnia (principal); J44.1 Chronic obstructive pulmonary disease with (acute) exacerbation; E46 Unspecified protein-calorie malnutrition; Z68.1 Body mass index [BMI] 19.9 or less, adult; J44.0 Chronic obstructive pulmonary disease with (acute) lower respiratory infection; J20.9 Acute bronchitis, unspecified; I10 Essential (primary) hypertension; D64.9 Anemia, unspecified; B19.20 Unspecified viral hepatitis C without hepatic coma; F17.200 Nicotine dependence, unspecified, uncomplicated; F32.9 Major depressive disorder, single episode, unspecified; T38.0X5A Adverse effect of glucocorticoids and synthetic analogues, initial encounter; K59.00 Constipation, unspecified; F41.9 Anxiety disorder, unspecified; R73.9 Hyperglycemia, unspecified; F03.90 Unspecified dementia, unspecified severity, without behavioral disturbance, psychotic disturbance, mood disturbance, and anxiety; M54.5 Low back pain; G89.29 Other chronic pain; G62.9 Polyneuropathy, unspecified; Z88.0 Allergy status to penicillin; Z91.14 Patient's other noncompliance with medication regimen
CPT/HCPCS: 36415; 36600; 71045; 74018; 80048; 80053; 80061; 80305; 81003; 82375; 82805; 82962; 83605; 83880; 84153; 84484; 85025; 87040; 93005; 93970; 94618; 94640; 94660; 96365; 96366; 96375; 97162; 99291; J1650; J1815; J1956; J2405; J2920; J2930; J3475; J3490; J7030; J7060; J7611; J7620; J7626; G0103

== ENCOUNTER 2018-02-10 11:53 | Inpatient (IN) | payer MEDICARE, MEDICAID ==
[~2018-02-10] VITALS: Ht 177.8 cm; Wt 59.9 kg
[2018-02-10] MEDS ORDERED: ALBUTEROL (0.083%) 2.5MG/3ML NEB HHN STA (12:49)
[2018-02-10] MEDS ORDERED: IPRATROPIUM BROMIDE (0.02%) 0.5MG/2.5ML NEB HHN STA (12:49)
[2018-02-10 13:13] LABS: CHLORIDE 99 mEq/L (98-107)
[2018-02-10 13:17] LABS: HEMOGLOBIN. 15.1 g/dL (14.0-18.0); MEAN CORPUSCULAR HEMOGLOBIN 33.3 pg (28.0-32.0); MEAN CORPUSCULAR VOLUME 99.4 fL (80.0-94.0); RED BLOOD CELL COUNT 4.52 mill/uL (4.7-6.1); RED CELL DISTRIBUTION WIDTH 13.5 % (11.6-14.6)
[2018-02-10] MEDS ORDERED: METHYLPREDNISOLONE SOD SUCC 125 MG/2 ML VIAL IV ONE (14:00)
[2018-02-10 14:32] LABS: MEAN PLATELET VOLUME 10.3 fl (7.4-10.4); PLATELET 163 x1000/uL (130-400); PLATELET ESTIMATE NORMAL
[2018-02-10] MEDS ORDERED: HYDROCODONE/ACETAMINOPHEN 5/325MG TABLET PO ONE (20:45)
[2018-02-10 22:15] VITALS: BP 160/74
[2018-02-10 23:21] VITALS: BP 160/74
[2018-02-11] VITALS: BP 142/83
[2018-02-11] MEDS ORDERED: LEVOFLOXACIN 500MG PREMIX 100 ML IV SCH
[2018-02-11] MEDS ORDERED: ACETAMINOPHEN 650MG/20.3ML UDC PO PRN
[2018-02-11] MEDS ORDERED: IPRATROPIUM/ALBUTEROL 0.5-3(2.5)MG/3ML NEB HHN PRN
[2018-02-11] MEDS: HYDROCODONE/ACETAMINOPHEN 5/325MG TABLET PO PRN ×3 (00:16→08:44)
[2018-02-11] MEDS: IPRATROPIUM/ALBUTEROL 0.5-3(2.5)MG/3ML NEB HHN PRN ×2 (01:45→18:55)
[2018-02-11 01:55] LABS: BG BASE EXCESS 3.1 mmol/L (-2.0-2.0); BG CARBOXYHEMOGLOBIN 0.7 % (0.5-1.5); BG DEOXYHEMOGLOBIN 6.4 % (0.0-5.0); BG FRACTION INSPIRED OXYGEN 21; BG HCO3 ACT 28.8 mmol/L (22.0-26.0); BG METHEMOGLOBIN 0.4 % (0.0-1.5); BG OXYGEN SATURATION 93.5 % (92.0-98.5); BG OXYHEMOGLOBIN 92.5 % (94.0-97.0); BG PCO2 47.7 mmHg (35.0-45.0); BG PH 7.399 (7.350-7.450); BG PO2 72.3 mmHg (75.0-100.0); BG SAMPLE SITE LEFT RADIAL; BG TOTAL HEMOGLOBIN 15.6 g/dL (12.0-18.0); BG VENT MODE ROOM AIR
[2018-02-11] MEDS: SODIUM CHLORIDE 0.9% 1,000 ML IV SCH ×2 (01:56→15:33)
[2018-02-11] MEDS: LEVOFLOXACIN 500MG PREMIX 100 ML IV SCH (01:56)
[2018-02-11 04:00] VITALS: BP 125/71
[2018-02-11] MEDS: PANTOPRAZOLE 40MG DR TABLET PO SCH (05:47)
[2018-02-11 06:33] LABS: HEMATOCRIT. 40.2 % (42.0-52.0); MEAN CORPUSCULAR VOLUME 97.9 fL (80.0-94.0); RED BLOOD CELL COUNT 4.11 mill/uL (4.7-6.1); RED CELL DISTRIBUTION WIDTH 13.5 % (11.6-14.6)
[2018-02-11 06:34] LABS: BASOPHILS % 0.1 % (0.0-2.0); LYMPHOCYTES % 9.8 % (20.0-50.0); MONOCYTES % 3.5 % (2.0-8.0); NEUTROPHILS % 86.6 % (40.0-76.0); PLATELET 168 x1000/uL (130-400)
[2018-02-11 06:44] LABS: CHLORIDE 99 mEq/L (98-107)
[2018-02-11 07:02] LABS: LDL CHOLESTEROL 69 mg/dL (5-100)
[2018-02-11 07:04] LABS: HDL CHOLESTEROL 43 mg/dL (40-59)
[2018-02-11] MEDS: METHYLPREDNISOLONE SOD SUCC 40 MG/ML VIAL IV SCH ×2 (08:44→21:26)
[2018-02-11] MEDS: ASPIRIN 81MG TABLET PO SCH (08:44)
[2018-02-11] MEDS: ENOXAPARIN 40MG/0.4ML SYR SUBCUT SCH (08:45)
[2018-02-11] MEDS ORDERED: INFLUENZA VIRUS VACCINE(AFLURIA) 0.5ML SYR IM ONE (10:00)
[2018-02-11] MEDS: MORPHINE SULFATE 4 MG/ML CPJ (NOT FOR IM USE) IV PRN ×3 (10:23→21:27)
[2018-02-11 12:00] VITALS: BP 119/64
[2018-02-11 20:00] VITALS: BP 116/66
[2018-02-12] VITALS: BP 123/67
[2018-02-12] MEDS: LEVOFLOXACIN 500MG PREMIX 100 ML IV SCH (00:13)
[2018-02-12] MEDS: IPRATROPIUM/ALBUTEROL 0.5-3(2.5)MG/3ML NEB HHN SCH ×4 (00:46→12:00)
[2018-02-12] MEDS: MORPHINE SULFATE 4 MG/ML CPJ (NOT FOR IM USE) IV PRN (04:22)
[2018-02-12] MEDS: PANTOPRAZOLE 40MG DR TABLET PO SCH (05:24)
[2018-02-12] MEDS: ASPIRIN 81MG TABLET PO SCH (09:35)
[2018-02-12] MEDS: METHYLPREDNISOLONE SOD SUCC 40 MG/ML VIAL IV SCH (09:35)
[2018-02-12] MEDS: ENOXAPARIN 40MG/0.4ML SYR SUBCUT SCH (09:36)
[2018-02-12 11:47] VITALS: BP 120/63
== END 2018-02-12 12:25 | disposition home or self-care (01) | DRG 189 ==
LOC: ER 11:53 → 5WST 14:50 → ENRESERV 21:10
PROVIDERS: ADMIT Internal Medicine; ATTEND Internal Medicine
DX: J96.20 Acute and chronic respiratory failure, unspecified whether with hypoxia or hypercapnia (principal); J44.1 Chronic obstructive pulmonary disease with (acute) exacerbation; E46 Unspecified protein-calorie malnutrition; Z68.1 Body mass index [BMI] 19.9 or less, adult; J44.0 Chronic obstructive pulmonary disease with (acute) lower respiratory infection; J20.9 Acute bronchitis, unspecified; I10 Essential (primary) hypertension; R73.9 Hyperglycemia, unspecified; B19.20 Unspecified viral hepatitis C without hepatic coma; Z91.19 Patient's noncompliance with other medical treatment and regimen; Z88.0 Allergy status to penicillin; Z79.82 Long term (current) use of aspirin; Z79.51 Long term (current) use of inhaled steroids; Z71.6 Tobacco abuse counseling; Z87.891 Personal history of nicotine dependence
CPT/HCPCS: 36415; 36600; 71045; 80061; 82375; 82805; 83880; 84484; 90686; 93005; 94640; 96374; 99285; 99406; J1650; J1956; J2270; J2920; J2930; J7030; J7611; J7620

== ENCOUNTER 2018-02-27 10:40 | Emergency (ER) | payer MEDICARE, MEDICAID ==
[~2018-02-27] VITALS: Ht 177.8 cm; Wt 61.0 kg
[2018-02-27] MEDS ORDERED: MAGNESIUM 2 G PREMIX 50 ML IV STA (14:25)
[2018-02-27] MEDS ORDERED: IPRATROPIUM BROMIDE (0.02%) 0.5MG/2.5ML NEB HHN STA (14:25)
[2018-02-27] MEDS ORDERED: METHYLPREDNISOLONE SOD SUCC 125 MG/2 ML VIAL IV STA (14:25)
[2018-02-27] MEDS ORDERED: ALBUTEROL (0.083%) 2.5MG/3ML NEB HHN STA (14:25)
[2018-02-27 15:16] LABS: CHLORIDE 98 mEq/L (98-107)
[2018-02-27 15:18] LABS: INR 1.2; PROTHROMBIN TIME 11.6 sec (9.1-11.1)
[2018-02-27 15:19] LABS: BASOPHILS % 1.1 % (0.0-2.0); EOSINOPHILS % 11.3 % (0.0-5.0); HEMATOCRIT. 47.3 % (42.0-52.0); LYMPHOCYTES % 34.9 % (20.0-50.0); MEAN CORPUSCULAR HEMOGLOBIN 33.7 pg (28.0-32.0); MEAN CORPUSCULAR VOLUME 99.4 fL (80.0-94.0); MEAN PLATELET VOLUME 9.5 fl (7.4-10.4); MONOCYTES % 14.4 % (2.0-8.0); NEUTROPHILS % 38.3 % (40.0-76.0); PLATELET 192 x1000/uL (130-400); RED BLOOD CELL COUNT 4.76 mill/uL (4.7-6.1); RED CELL DISTRIBUTION WIDTH 13.5 % (11.6-14.6)
[2018-02-27 15:20] LABS: ETHANOL BLOOD < 10 mg/dL
[2018-02-27] MEDS ORDERED: SODIUM CHLORIDE 0.9% 500 ML IV ONE (15:33)
[2018-02-27] MEDS ORDERED: PREDNISONE 20MG TABLET PO ONE (15:45)
[2018-02-27] MEDS ORDERED: ACETAMINOPHEN 325MG TABLET PO ONE (16:00)
[2018-02-27 16:38] VITALS: BP 135/75
== END 2018-02-27 16:39 | disposition home or self-care (01) ==
LOC: ER 12:08 → CANBEDREQ 18:50
DX: J44.1 Chronic obstructive pulmonary disease with (acute) exacerbation (principal); I10 Essential (primary) hypertension; F17.200 Nicotine dependence, unspecified, uncomplicated; F12.10 Cannabis abuse, uncomplicated; Z98.890 Other specified postprocedural states; Z88.0 Allergy status to penicillin; Z79.82 Long term (current) use of aspirin
CPT/HCPCS: 36415; 71045; 80053; 83605; 83880; 84484; 85025; 85610; 87040; 93005; 94644; 96365; 96375; 99285; 99406; G0482; J2930; J3475; J7040; J7512; J7611

== ENCOUNTER 2018-04-20 16:14 | Inpatient (IN) | payer MEDICARE, MEDICAID ==
[~2018-04-20] VITALS: Ht 177.8 cm; Wt 63.0 kg
[2018-04-20] MEDS ORDERED: IPRATROPIUM BROMIDE (0.02%) 0.5MG/2.5ML NEB HHN STA (22:50)
[2018-04-20] MEDS ORDERED: METHYLPREDNISOLONE SOD SUCC 125 MG/2 ML VIAL IV STA (22:50)
[2018-04-20] MEDS ORDERED: ALBUTEROL (0.083%) 2.5MG/3ML NEB HHN STA (22:50)
[2018-04-20] MEDS ORDERED: PIPERACILLIN/TAZ 3.375G PREMIX 50 ML IV ONE (23:00)
[2018-04-20] MEDS ORDERED: SODIUM CHLORIDE 0.9% 1000ML BAG (SEPSIS BOLUS) IV ONE (23:00)
[2018-04-20] MEDS ORDERED: VANCOMYCIN 1 G PREMIX 200 ML IV ONE (23:00)
[2018-04-20 23:48] LABS: CLARITY URINE CLEAR (CLEAR); COLOR URINE YELLOW (YELLOW); KETONES URINE NEGATIVE (NEGATIVE); LEUKOCYTE ESTERASE URINE 1+ (NEGATIVE); NITRITE URINE NEGATIVE (NEGATIVE); OCCULT BLOOD URINE NEGATIVE (NEGATIVE); PROTEIN URINE NEGATIVE (NEGATIVE); SPECIFIC GRAVITY URINE 1.014 (1.005-1.030)
[2018-04-20 23:54] LABS: CHLORIDE 100 mEq/L (98-107)
[2018-04-20 23:58] LABS: INR 1.2; PARTIAL THROMBOPLASTIN TIME 29.2 sec (23.4-31.0); PROTHROMBIN TIME 11.8 sec (9.1-11.1)
[2018-04-21 00:02] LABS: BASOPHILS % 1.3 % (0.0-2.0); EOSINOPHILS % 11.4 % (0.0-5.0); HEMATOCRIT. 45.1 % (42.0-52.0); HEMOGLOBIN. 15.1 g/dL (14.0-18.0); LYMPHOCYTES % 30.2 % (20.0-50.0); MEAN CORPUSCULAR VOLUME 98.6 fL (80.0-94.0); MEAN PLATELET VOLUME 10.2 fl (7.4-10.4); MONOCYTES % 14.2 % (2.0-8.0); NEUTROPHILS % 42.9 % (40.0-76.0); PLATELET 200 x1000/uL (130-400); RED BLOOD CELL COUNT 4.57 mill/uL (4.7-6.1); RED CELL DISTRIBUTION WIDTH 13.1 % (11.6-14.6)
[2018-04-21 03:35] VITALS: BP 112/68
[2018-04-21] MEDS ORDERED: ALBUTEROL INH (04:40)
[2018-04-21] MEDS ORDERED: ACETAMINOPHEN 325MG TABLET PO PRN (05:30)
[2018-04-21] MEDS ORDERED: LEVOFLOXACIN 500MG PREMIX 100 ML IV SCH (05:30)
[2018-04-21] MEDS: METHYLPREDNISOLONE SOD SUCC 40 MG/ML VIAL IV SCH ×3 (06:36→21:23)
[2018-04-21] MEDS: DEXT 5%/0.45% NACL 1000ML 1,000 ML IV SCH ×2 (06:48→21:23)
[2018-04-21] MEDS ORDERED: PANTOPRAZOLE 40MG DR TABLET PO SCH (07:10)
[2018-04-21 08:00] VITALS: BP 113/68
[2018-04-21] MEDS: LEVOFLOXACIN 500MG PREMIX 100 ML IV SCH (08:37)
[2018-04-21] MEDS: ENOXAPARIN 40MG/0.4ML SYR SUBCUT SCH (08:37)
[2018-04-21] MEDS: IPRATROPIUM/ALBUTEROL 0.5-3(2.5)MG/3ML NEB HHN SCH ×4 (09:47→19:52)
[2018-04-21 12:00] VITALS: BP 112/61
[2018-04-21] MEDS ORDERED: GUAIFENESIN-DM 200MG-20MG/10ML UDC PO PRN (15:00)
[2018-04-21 16:00] VITALS: BP 114/62
[2018-04-21 20:00] VITALS: BP 103/61
[2018-04-22] VITALS: BP 158/62
[2018-04-22 04:00] VITALS: BP 111/64
[2018-04-22] MEDS: IPRATROPIUM/ALBUTEROL 0.5-3(2.5)MG/3ML NEB HHN SCH ×6 (04:31→21:15)
[2018-04-22] MEDS: PANTOPRAZOLE 40MG DR TABLET PO SCH (06:20)
[2018-04-22 07:26] LABS: HEMATOCRIT. 41.1 % (42.0-52.0); HEMOGLOBIN. 13.7 g/dL (14.0-18.0); MEAN CORPUSCULAR HEMOGLOBIN 32.7 pg (28.0-32.0); MEAN CORPUSCULAR VOLUME 98.2 fL (80.0-94.0); MEAN PLATELET VOLUME 10.4 fl (7.4-10.4); PLATELET 174 x1000/uL (130-400); RED BLOOD CELL COUNT 4.18 mill/uL (4.7-6.1)
[2018-04-22 07:57] LABS: CHLORIDE 99 mEq/L (98-107)
[2018-04-22 08:00] VITALS: BP 110/58
[2018-04-22] MEDS: LEVOFLOXACIN 500MG PREMIX 100 ML IV SCH (08:00)
[2018-04-22 08:09] LABS: LDL CHOLESTEROL 58 mg/dL (5-100)
[2018-04-22 08:12] LABS: HDL CHOLESTEROL 40 mg/dL (40-59)
[2018-04-22] MEDS: DEXT 5%/0.45% NACL 1000ML 1,000 ML IV SCH (08:20)
[2018-04-22] MEDS: ENOXAPARIN 40MG/0.4ML SYR SUBCUT SCH (09:20)
[2018-04-22] MEDS: METHYLPREDNISOLONE SOD SUCC 40 MG/ML VIAL IV SCH (09:20)
[2018-04-22 12:00] VITALS: BP 159/73
[2018-04-22 13:30] LABS: PLATELET ESTIMATE NORMAL
[2018-04-22] MEDS: PREDNISONE 20MG TABLET PO SCH (14:31)
[2018-04-22] MEDS: AZITHROMYCIN 500 MG TABLET PO SCH (14:31)
[2018-04-22 15:38] LABS: HEMATOCRIT. 42.3 % (42.0-52.0); MEAN CORPUSCULAR HEMOGLOBIN 32.4 pg (28.0-32.0); MEAN CORPUSCULAR VOLUME 98.3 fL (80.0-94.0); MEAN PLATELET VOLUME 9.9 fl (7.4-10.4); PLATELET 195 x1000/uL (130-400); RED CELL DISTRIBUTION WIDTH 13.2 % (11.6-14.6)
[2018-04-22 16:00] VITALS: BP 138/72
[2018-04-22 20:00] VITALS: BP 126/63
[2018-04-22 22:17] LABS: PLATELET ESTIMATE NORMAL
[2018-04-23] VITALS: BP 116/68
[2018-04-23] MEDS: IPRATROPIUM/ALBUTEROL 0.5-3(2.5)MG/3ML NEB HHN SCH ×6 (00:01→20:43)
[2018-04-23 04:00] VITALS: BP 149/71
[2018-04-23] MEDS: PANTOPRAZOLE 40MG DR TABLET PO SCH (06:30)
[2018-04-23 08:14] VITALS: BP 124/75
[2018-04-23] MEDS: LEVOFLOXACIN 500MG PREMIX 100 ML IV SCH (08:23)
[2018-04-23] MEDS: PREDNISONE 20MG TABLET PO SCH (09:25)
[2018-04-23] MEDS: AZITHROMYCIN 500 MG TABLET PO SCH (09:25)
[2018-04-23] MEDS: ENOXAPARIN 40MG/0.4ML SYR SUBCUT SCH (09:27)
[2018-04-23 12:00] VITALS: BP 123/78
[2018-04-23] MEDS ORDERED: LIDOCAINE HCL/PF 1% 2ML VIAL ONE (13:40)
[2018-04-23] MEDS ORDERED: DIPHENHYDRAMINE 50MG/ML VIAL IV PRN (14:45)
[2018-04-23] MEDS ORDERED: LORAZEPAM 0.5MG TABLET PO PRN (14:45)
[2018-04-23] MEDS: NICOTINE 14MG PATCH TD SCH (15:00)
[2018-04-23 16:25] LABS: BG BASE EXCESS -1.6 mmol/L (-2.0-2.0); BG CARBOXYHEMOGLOBIN 0.4 % (0.5-1.5); BG FRACTION INSPIRED OXYGEN 21; BG HCO3 ACT 23.9 mmol/L (22.0-26.0); BG METHEMOGLOBIN 0.5 % (0.0-1.5); BG OXYGEN SATURATION 92.9 % (92.0-98.5); BG OXYHEMOGLOBIN 92.1 % (94.0-97.0); BG PCO2 43.4 mmHg (35.0-45.0); BG PH 7.359 (7.350-7.450); BG PO2 69.3 mmHg (75.0-100.0); BG SAMPLE SITE RIGHT BRACHIAL; BG TOTAL HEMOGLOBIN 14.2 g/dL (12.0-18.0); BG VENT MODE ROOM AIR
[2018-04-23 16:50] VITALS: BP 130/66
[2018-04-23 20:00] VITALS: BP 154/78
[2018-04-23] MEDS: BUDESONIDE 0.5MG/2ML NEB HHN SCH (20:43)
[2018-04-23] MEDS: FAMOTIDINE 20MG/2ML VIAL IV SCH (21:05)
[2018-04-23] MEDS: HYDROCODONE/ACETAMINOPHEN 5/325MG TABLET PO PRN (21:05)
[2018-04-24] VITALS (7 sets, daily range): BP systolic 124–152; BP diastolic 64–83
[2018-04-24] MEDS: IPRATROPIUM/ALBUTEROL 0.5-3(2.5)MG/3ML NEB HHN SCH ×5 (00:08→20:37)
[2018-04-24] MEDS: HYDROCODONE/ACETAMINOPHEN 5/325MG TABLET PO PRN ×3 (04:01→19:53)
[2018-04-24] MEDS: FAMOTIDINE 20MG/2ML VIAL IV SCH ×2 (08:40→20:57)
[2018-04-24] MEDS: LEVOFLOXACIN 500MG PREMIX 100 ML IV SCH (08:41)
[2018-04-24] MEDS: PREDNISONE 20MG TABLET PO SCH (08:41)
[2018-04-24] MEDS: ENOXAPARIN 40MG/0.4ML SYR SUBCUT SCH (08:41)
[2018-04-24] MEDS: AZITHROMYCIN 500 MG TABLET PO SCH (08:41)
[2018-04-24] MEDS: NICOTINE 14MG PATCH TD SCH (08:42)
[2018-04-24] MEDS: BUDESONIDE 0.5MG/2ML NEB HHN SCH ×2 (11:36→20:37)
[2018-04-24 12:01] LABS: *AMPHETAMINES SCREEN URINE NEGATIVE (NEGATIVE)
[2018-04-24 12:02] LABS: *BARBITURATES SCREEN URINE NEGATIVE (NEGATIVE); *BENZODIAZEPINES SCREEN URINE NEGATIVE (NEGATIVE); *COCAINE SCREEN URINE NEGATIVE (NEGATIVE); CANNABINOID URINE SCREEN PRESUMTIVE POSITIVE (NEGATIVE); METHADONE URINE SCREEN NEGATIVE (NEGATIVE); OPIATES URINE SCREEN PRESUMTIVE POSITIVE (NEGATIVE); PHENCYCLIDINE URINE SCREEN NEGATIVE (NEGATIVE)
== END 2018-04-24 22:00 | DRG 189 ==
LOC: ER 16:14 → 8WST 04-21 00:58 → EDBEDREQ 04-21 01:00 → ENRESERV 04-21 02:40
PROVIDERS: ADMIT Internal Medicine; ATTEND Internal Medicine
DX: J96.00 Acute respiratory failure, unspecified whether with hypoxia or hypercapnia (principal); J44.0 Chronic obstructive pulmonary disease with (acute) lower respiratory infection; E46 Unspecified protein-calorie malnutrition; Z68.1 Body mass index [BMI] 19.9 or less, adult; J44.1 Chronic obstructive pulmonary disease with (acute) exacerbation; J20.9 Acute bronchitis, unspecified; I10 Essential (primary) hypertension; B19.20 Unspecified viral hepatitis C without hepatic coma; F17.200 Nicotine dependence, unspecified, uncomplicated; E78.5 Hyperlipidemia, unspecified; T38.0X5A Adverse effect of glucocorticoids and synthetic analogues, initial encounter; Z87.01 Personal history of pneumonia (recurrent); Z99.81 Dependence on supplemental oxygen; Z91.19 Patient's noncompliance with other medical treatment and regimen; Y92.89 Other specified places as the place of occurrence of the external cause
CPT/HCPCS: 36415; 36600; 71045; 80061; 80305; 82375; 82805; 83605; 83880; 84145; 84484; 87804; 93005; 93306; 94644; 96365; 96366; 96368; 96375; 97161; 99285; J1650; J1956; J2543; J2920; J2930; J3370; J3490; J7030; J7512; J7611; J7620; J7626

== ENCOUNTER 2018-06-29 10:56 | Emergency (ER) | payer MEDICARE, MEDICAID ==
[~2018-06-29] VITALS: Ht 177.8 cm; Wt 58.0 kg
[~2018-06-29 10:56] MED LIST changes: +ALBUTEROL INH; -ASPI-1159 PO
[2018-06-29] MEDS ORDERED: PREDNISONE 20MG TABLET PO STA (11:27)
[2018-06-29] MEDS ORDERED: IPRATROPIUM BROMIDE (0.02%) 0.5MG/2.5ML NEB HHN STA (11:27)
[2018-06-29] MEDS ORDERED: ALBUTEROL (0.083%) 2.5MG/3ML NEB HHN STA (11:27)
[2018-06-29 13:45] VITALS: BP 136/70
== END 2018-06-29 13:48 | disposition home or self-care (01) ==
LOC: ER 10:56
DX: J44.1 Chronic obstructive pulmonary disease with (acute) exacerbation (principal); I10 Essential (primary) hypertension; G62.9 Polyneuropathy, unspecified; F17.200 Nicotine dependence, unspecified, uncomplicated; Z87.01 Personal history of pneumonia (recurrent); Z98.890 Other specified postprocedural states; Z86.19 Personal history of other infectious and parasitic diseases; Z79.899 Other long term (current) drug therapy
CPT/HCPCS: 71045; 94644; 99285; J7512; J7611

== ENCOUNTER 2018-07-29 02:45 | Inpatient (IN) | payer MEDICARE, MEDICAID ==
[~2018-07-29] VITALS: Ht 175.3 cm; Wt 59.0 kg
[2018-07-29] MEDS ORDERED: IPRATROPIUM BROMIDE (0.02%) 0.5MG/2.5ML NEB HHN STA (03:08)
[2018-07-29] MEDS ORDERED: ALBUTEROL (0.083%) 2.5MG/3ML NEB HHN STA (03:08)
[2018-07-29 03:30] LABS: HEMATOCRIT. 42.3 % (42.0-52.0); HEMOGLOBIN. 14.4 g/dL (14.0-18.0); MEAN CORPUSCULAR HEMOGLOBIN 33.3 pg (28.0-32.0); MEAN CORPUSCULAR VOLUME 97.8 fL (80.0-94.0); MEAN PLATELET VOLUME 9.1 fl (7.4-10.4); PLATELET 213 x1000/uL (130-400); RED BLOOD CELL COUNT 4.32 mill/uL (4.7-6.1); RED CELL DISTRIBUTION WIDTH 13.6 % (11.6-14.6)
[2018-07-29] MEDS ORDERED: ALBUTEROL (0.5%) 2.5MG/0.5ML NEB HHN ONE (03:30)
[2018-07-29 03:36] LABS: CHLORIDE 98 mEq/L (98-107)
[2018-07-29 06:12] LABS: PLATELET ESTIMATE NORMAL
[2018-07-29] MEDS ORDERED: KETOROLAC 15MG/ML VIAL IV ONE (11:00)
[2018-07-29 14:45] VITALS: BP 121/57
[2018-07-29 16:00] VITALS: BP 121/57
[2018-07-29] MEDS ORDERED: CLONIDINE 0.1MG TABLET PO PRN (16:15)
[2018-07-29] MEDS ORDERED: IPRATROPIUM/ALBUTEROL 0.5-3(2.5)MG/3ML NEB INH PRN (16:15)
[2018-07-29] MEDS ORDERED: LORAZEPAM 2MG/ML CPJ IV PRN (16:15)
[2018-07-29] MEDS ORDERED: ONDANSETRON HCL 4MG/2ML INJ IV PRN (16:15)
[2018-07-29] MEDS ORDERED: GUAIFENESIN 200MG/10ML SUGAR FREE UDC PO PRN (16:15)
[2018-07-29] MEDS ORDERED: MAGNESIUM/ALUMINUM HYDROXIDE/SIMETHICONE 30ML UDC PO PRN (16:15)
[2018-07-29] MEDS ORDERED: ACETAMINOPHEN 325MG TABLET PO PRN (16:15)
[2018-07-29] MEDS ORDERED: DIPHENHYDRAMINE 50MG/ML VIAL IV PRN (16:15)
[2018-07-29] MEDS: METHYLPREDNISOLONE SOD SUCC 40 MG/ML VIAL IV SCH (17:02)
[2018-07-29] MEDS: ENOXAPARIN 40MG/0.4ML SYR SUBCUT SCH (17:04)
[2018-07-29 20:17] VITALS: BP 144/84
[2018-07-29] MEDS ORDERED: TEMAZEPAM 15MG CAPSULE PO PRN (21:00)
[2018-07-29] MEDS: FAMOTIDINE 20MG TABLET PO SCH (21:52)
[2018-07-29] MEDS: KETOROLAC 15MG/ML VIAL IV PRN (21:53)
[2018-07-29] MEDS: IPRATROPIUM/ALBUTEROL 0.5-3(2.5)MG/3ML NEB HHN SCH (21:54)
[2018-07-29] MEDS: SODIUM CHLORIDE 0.9% INJ 3ML FLUSH IVF SCH (21:54)
[2018-07-30] VITALS: BP 116/73
[2018-07-30] MEDS: METHYLPREDNISOLONE SOD SUCC 40 MG/ML VIAL IV SCH ×3 (01:54→16:20)
[2018-07-30] MEDS: IPRATROPIUM/ALBUTEROL 0.5-3(2.5)MG/3ML NEB HHN SCH ×3 (03:30→14:24)
[2018-07-30 04:00] VITALS: BP 128/65
[2018-07-30] MEDS: SODIUM CHLORIDE 0.9% INJ 3ML FLUSH IVF SCH ×2 (06:01→15:30)
[2018-07-30 08:00] VITALS: BP 135/78
[2018-07-30] MEDS: FAMOTIDINE 20MG TABLET PO SCH (08:41)
[2018-07-30] MEDS: KETOROLAC 15MG/ML VIAL IV PRN ×2 (08:43→16:21)
[2018-07-30 12:00] VITALS: BP 121/68
[2018-07-30 12:39] LABS: HEMATOCRIT 41.9 % (42.0-52.0); HEMOGLOBIN 14.2 g/dL (14.0-18.0); MEAN CORPUSCULAR HEMOGLOBIN 33.2 pg (28.0-32.0); MEAN CORPUSCULAR VOLUME 97.8 fL (80.0-94.0); PLATELET 219 x1000/uL (130-400); RED BLOOD CELL COUNT 4.29 mill/uL (4.7-6.1); RED CELL DISTRIBUTION WIDTH 13.6 % (11.6-14.6)
[2018-07-30 12:48] LABS: CHLORIDE 96 mEq/L (98-107)
[2018-07-30 16:05] VITALS: BP 121/68
[2018-07-30] MEDS: ENOXAPARIN 40MG/0.4ML SYR SUBCUT SCH (16:20)
[2018-07-30 16:21] VITALS: BP 121/68
== END 2018-07-30 19:58 | disposition home or self-care (01) | DRG 190 ==
LOC: ER 02:45 → 7WST 06:34 → EDBEDREQ 06:36 → EDBEDREQTM 06:36 → ENRESERV 13:48
PROVIDERS: ADMIT Internal Medicine; ATTEND Internal Medicine
DX: J44.1 Chronic obstructive pulmonary disease with (acute) exacerbation (principal); J96.90 Respiratory failure, unspecified, unspecified whether with hypoxia or hypercapnia; B19.20 Unspecified viral hepatitis C without hepatic coma; J06.9 Acute upper respiratory infection, unspecified; D72.1 Eosinophilia; F17.200 Nicotine dependence, unspecified, uncomplicated; I10 Essential (primary) hypertension; I27.20 Pulmonary hypertension, unspecified; Z79.899 Other long term (current) drug therapy; Z99.81 Dependence on supplemental oxygen
CPT/HCPCS: 36415; 71045; 83880; 84484; 85027; 93005; 93970; 94640; 96374; 99285; J1650; J1885; J2920; J7611; J7620

== ENCOUNTER 2018-08-14 10:17 | Inpatient (IN) | payer MEDICARE, MEDICAID ==
[~2018-08-14] VITALS: Ht 177.8 cm; Wt 57.6 kg
[2018-08-14] VITALS: BP 123/79
[2018-08-14] MEDS ORDERED: IPRATROPIUM BROMIDE (0.02%) 0.5MG/2.5ML NEB HHN STA ×2 (11:26→12:49)
[2018-08-14] MEDS ORDERED: PREDNISONE 20MG TABLET PO STA (11:26)
[2018-08-14] MEDS ORDERED: ALBUTEROL (0.083%) 2.5MG/3ML NEB HHN STA ×2 (11:26→12:49)
[2018-08-14 11:44] LABS: BASOPHILS % 0.5 % (0.0-2.0); EOSINOPHILS % 0.4 % (0.0-5.0); HEMATOCRIT. 48.3 % (42.0-52.0); HEMOGLOBIN. 16.3 g/dL (14.0-18.0); LYMPHOCYTES % 13.2 % (20.0-50.0); MEAN CORPUSCULAR VOLUME 97.9 fL (80.0-94.0); NEUTROPHILS % 73.9 % (40.0-76.0); RED BLOOD CELL COUNT 4.93 mill/uL (4.7-6.1); RED CELL DISTRIBUTION WIDTH 13.7 % (11.6-14.6)
[2018-08-14 11:50] LABS: CHLORIDE 95 mEq/L (98-107)
[2018-08-14 12:01] LABS: PLATELET 226 x1000/uL (130-400)
[2018-08-14] MEDS ORDERED: SODIUM CHLORIDE 0.9% 1,000 ML IV ONE (12:49)
[2018-08-14] MEDS ORDERED: LEVOFLOXACIN 750MG PREMIX 150 ML IV ONE (13:00)
[2018-08-14] MEDS ORDERED: DILTIAZEM HCL 30MG TABLET PO SCH (15:00)
[2018-08-14] MEDS ORDERED: GUAIFENESIN 200MG/10ML SUGAR FREE UDC PO PRN (15:00)
[2018-08-14] MEDS ORDERED: ACETAMINOPHEN 325MG TABLET PO PRN (15:00)
[2018-08-14] MEDS ORDERED: MAGNESIUM/ALUMINUM HYDROXIDE/SIMETHICONE 30ML UDC PO PRN (15:00)
[2018-08-14] MEDS ORDERED: NA PHOS,M-B/NA PHOS,DI-BA ENEMA 118ML PR PRN (15:00)
[2018-08-14] MEDS ORDERED: CLONIDINE 0.1MG TABLET PO PRN (15:00)
[2018-08-14] MEDS ORDERED: IPRATROPIUM/ALBUTEROL 0.5-3(2.5)MG/3ML NEB INH PRN (15:00)
[2018-08-14] MEDS ORDERED: LORAZEPAM 0.5MG TABLET PO PRN (15:00)
[2018-08-14] MEDS ORDERED: ACETAMINOPHEN 650MG SUPP PR PRN (15:00)
[2018-08-14] MEDS ORDERED: DIPHENHYDRAMINE 50MG/ML VIAL IV PRN (15:00)
[2018-08-14] MEDS: IPRATROPIUM/ALBUTEROL 0.5-3(2.5)MG/3ML NEB INH SCH (15:00)
[2018-08-14] MEDS ORDERED: DOCUSATE SODIUM 100MG CAPSULE PO PRN (15:00)
[2018-08-14] MEDS ORDERED: LEVOFLOXACIN 500MG PREMIX 100 ML IV SCH (15:00)
[2018-08-14] MEDS ORDERED: ONDANSETRON HCL 4MG/2ML INJ IV PRN (15:00)
[2018-08-14] MEDS ORDERED: METHYLPREDNISOLONE SOD SUCC 125 MG/2 ML VIAL IV SCH (15:00)
[2018-08-14 22:15] VITALS: BP 121/82
[2018-08-14] MEDS: DILTIAZEM HCL 30MG TABLET PO SCH (23:00)
[2018-08-14] MEDS ORDERED: FAMO20TA8 PO (23:11)
[2018-08-14] MEDS: METHYLPREDNISOLONE SOD SUCC 40 MG/ML VIAL IV SCH (23:25)
[2018-08-14] MEDS: HYDROCODONE/ACETAMINOPHEN 5/325MG TABLET PO PRN (23:25)
[2018-08-15] VITALS: BP 123/79
[2018-08-15] MEDS: IPRATROPIUM/ALBUTEROL 0.5-3(2.5)MG/3ML NEB INH SCH ×4 (01:38→20:36)
[2018-08-15 04:00] VITALS: BP 110/54
[2018-08-15 07:08] LABS: BASOPHILS % 0.1 % (0.0-2.0); HEMATOCRIT. 42.8 % (42.0-52.0); HEMOGLOBIN. 14.4 g/dL (14.0-18.0); LYMPHOCYTES % 7.9 % (20.0-50.0); MEAN CORPUSCULAR HEMOGLOBIN 32.7 pg (28.0-32.0); MEAN CORPUSCULAR VOLUME 97.6 fL (80.0-94.0); MEAN PLATELET VOLUME 9.1 fl (7.4-10.4); MONOCYTES % 2.2 % (2.0-8.0); NEUTROPHILS % 89.8 % (40.0-76.0); PLATELET 181 x1000/uL (130-400); RED BLOOD CELL COUNT 4.39 mill/uL (4.7-6.1); RED CELL DISTRIBUTION WIDTH 13.5 % (11.6-14.6)
[2018-08-15 08:00] VITALS: BP 118/68
[2018-08-15] MEDS: DILTIAZEM HCL 30MG TABLET PO SCH ×2 (09:02→21:00)
[2018-08-15 09:56] LABS: T4 FREE 1.47 ng/dL (0.76-1.46)
[2018-08-15] MEDS: METHYLPREDNISOLONE SOD SUCC 40 MG/ML VIAL IV SCH ×2 (10:59→23:34)
[2018-08-15 11:53] LABS: CHLORIDE 100 mEq/L (98-107)
[2018-08-15 12:00] VITALS: BP_SYST 118; BP_SYST 120; BP_DIAS 49; BP_DIAS 68
[2018-08-15] MEDS: LEVOFLOXACIN 500MG PREMIX 100 ML IV SCH (12:34)
[2018-08-15 13:17] LABS: HEMATOCRIT 44.9 % (42.0-52.0); MEAN CORPUSCULAR HEMOGLOBIN 33.1 pg (28.0-32.0); MEAN CORPUSCULAR VOLUME 99.3 fL (80.0-94.0); PLATELET 191 x1000/uL (130-400); RED BLOOD CELL COUNT 4.52 mill/uL (4.7-6.1); RED CELL DISTRIBUTION WIDTH 13.9 % (11.6-14.6)
[2018-08-15 16:00] VITALS: BP 96/59
[2018-08-15] MEDS: HYDROCODONE/ACETAMINOPHEN 5/325MG TABLET PO PRN ×2 (16:27→20:39)
[2018-08-15 16:49] LABS: CLARITY URINE CLEAR (CLEAR); COLOR URINE YELLOW (YELLOW); KETONES URINE NEGATIVE (NEGATIVE); LEUKOCYTE ESTERASE URINE 1+ (NEGATIVE); NITRITE URINE NEGATIVE (NEGATIVE); OCCULT BLOOD URINE NEGATIVE (NEGATIVE); PH URINE 6.5 (4.5-8.0); PROTEIN URINE NEGATIVE (NEGATIVE); SPECIFIC GRAVITY URINE 1.024 (1.005-1.030)
[2018-08-15 16:59] LABS: *AMPHETAMINES SCREEN URINE NEGATIVE (NEGATIVE); *BARBITURATES SCREEN URINE NEGATIVE (NEGATIVE); *BENZODIAZEPINES SCREEN URINE NEGATIVE (NEGATIVE); *COCAINE SCREEN URINE NEGATIVE (NEGATIVE)
[2018-08-15 17:00] LABS: CANNABINOID URINE SCREEN PRESUMTIVE POSITIVE (NEGATIVE); METHADONE URINE SCREEN NEGATIVE (NEGATIVE); OPIATES URINE SCREEN PRESUMTIVE POSITIVE (NEGATIVE); PHENCYCLIDINE URINE SCREEN NEGATIVE (NEGATIVE)
[2018-08-15 17:11] LABS: CREATINE KINASE 33 IU/L (39-308)
[2018-08-15 17:12] LABS: CREATINE KINASE MB FRACTION 1.9 ng/mL (0.5-3.6)
[2018-08-15 17:58] LABS: BG BASE EXCESS 1.6 mmol/L (-2.0-2.0); BG CARBOXYHEMOGLOBIN 0.6 % (0.5-1.5); BG DEOXYHEMOGLOBIN 9.2 % (0.0-5.0); BG FRACTION INSPIRED OXYGEN 21; BG HCO3 ACT 26.7 mmol/L (22.0-26.0); BG METHEMOGLOBIN 0.1 % (0.0-1.5); BG OXYGEN SATURATION 90.7 % (92.0-98.5); BG OXYHEMOGLOBIN 90.1 % (94.0-97.0); BG PCO2 43.5 mmHg (35.0-45.0); BG PH 7.406 (7.350-7.450); BG PO2 61.4 mmHg (75.0-100.0); BG SAMPLE SITE RIGHT BRACHIAL; BG TOTAL HEMOGLOBIN 15.6 g/dL (12.0-18.0); BG VENT MODE ROOM AIR
[2018-08-15 20:00] VITALS: BP 100/62
[2018-08-16] VITALS: BP 125/77
[2018-08-16] MEDS: HYDROCODONE/ACETAMINOPHEN 5/325MG TABLET PO PRN (00:36)
[2018-08-16 01:15] LABS: CREATINE KINASE 37 IU/L (39-308)
[2018-08-16 01:17] LABS: CREATINE KINASE MB FRACTION 1.9 ng/mL (0.5-3.6)
[2018-08-16] MEDS: IPRATROPIUM/ALBUTEROL 0.5-3(2.5)MG/3ML NEB INH SCH ×3 (01:57→15:35)
[2018-08-16 04:00] VITALS: BP 123/64
[2018-08-16 06:17] LABS: HEMOGLOBIN 14.1 g/dL (14.0-18.0); MEAN CORPUSCULAR HEMOGLOBIN 32.6 pg (28.0-32.0); MEAN CORPUSCULAR VOLUME 97.2 fL (80.0-94.0); PLATELET 196 x1000/uL (130-400); RED BLOOD CELL COUNT 4.32 mill/uL (4.7-6.1); RED CELL DISTRIBUTION WIDTH 13.5 % (11.6-14.6)
[2018-08-16 06:22] LABS: CHLORIDE 98 mEq/L (98-107)
[2018-08-16 06:31] LABS: CREATINE KINASE 49 IU/L (39-308)
[2018-08-16 06:32] LABS: CREATINE KINASE MB FRACTION 2.1 ng/mL (0.5-3.6)
[2018-08-16 08:00] VITALS: BP 125/71
[2018-08-16] MEDS: DILTIAZEM HCL 30MG TABLET PO SCH (08:28)
[2018-08-16] MEDS: METHYLPREDNISOLONE SOD SUCC 40 MG/ML VIAL IV SCH (11:00)
[2018-08-16 12:00] VITALS: BP 114/84
[2018-08-16] MEDS: LEVOFLOXACIN 500MG PREMIX 100 ML IV SCH (13:15)
[2018-08-16] MEDS ORDERED: LEVOFLOXACIN 500MG TABLET PO NR (13:30)
[2018-08-16 15:40] VITALS: BP 114/84
== END 2018-08-16 16:30 | disposition home or self-care (01) | DRG 190 ==
LOC: ER 10:17 → 5WST 13:44 → ENRESERV 20:16
PROVIDERS: ADMIT Internal Medicine; ATTEND Internal Medicine
DX: J44.0 Chronic obstructive pulmonary disease with (acute) lower respiratory infection (principal); J18.9 Pneumonia, unspecified organism; J96.20 Acute and chronic respiratory failure, unspecified whether with hypoxia or hypercapnia; E87.1 Hypo-osmolality and hyponatremia; D68.59 Other primary thrombophilia; R65.10 Systemic inflammatory response syndrome (SIRS) of non-infectious origin without acute organ dysfunction; J44.1 Chronic obstructive pulmonary disease with (acute) exacerbation; J20.9 Acute bronchitis, unspecified; B19.20 Unspecified viral hepatitis C without hepatic coma; D72.829 Elevated white blood cell count, unspecified; R79.89 Other specified abnormal findings of blood chemistry; F17.200 Nicotine dependence, unspecified, uncomplicated; I10 Essential (primary) hypertension; T38.0X5A Adverse effect of glucocorticoids and synthetic analogues, initial encounter; Z86.73 Personal history of transient ischemic attack (TIA), and cerebral infarction without residual deficits; Z91.19 Patient's noncompliance with other medical treatment and regimen; Y92.89 Other specified places as the place of occurrence of the external cause
CPT/HCPCS: 36415; 36600; 71045; 80048; 80061; 80305; 82375; 82550; 82553; 82805; 83036; 83880; 84439; 84443; 84484; 85027; 85379; 93005; 93306; 93970; 94640; 96365; 96366; 99285; J1956; J2920; J7030; J7050; J7512; J7611; J7620

== ENCOUNTER 2019-06-09 01:52 | Emergency (ER) | payer BC, MEDICAID ==
[~2019-06-09] VITALS: Ht 177.8 cm; Wt 68.0 kg
[~2019-06-09 01:52] MED LIST changes: -ALBU6.7H INH; +ALBU6.7H11 INH; -ALBUTEROL INH; +FAMO20TA8 PO; -FLUT1DIS3 IH
[2019-06-09 01:53] VITALS: BP 140/84
[2019-06-09] MEDS ORDERED: HYDROCODONE/ACETAMINOPHEN 5/325MG TABLET PO STA (04:29)
== END 2019-06-09 07:28 | disposition home or self-care (01) ==
LOC: ER 01:52
DX: S00.83XA Contusion of other part of head, initial encounter (principal); Y08.89XA Assault by other specified means, initial encounter; Y93.89 Activity, other specified; Y92.89 Other specified places as the place of occurrence of the external cause; Y99.8 Other external cause status; J44.9 Chronic obstructive pulmonary disease, unspecified; F12.10 Cannabis abuse, uncomplicated
CPT/HCPCS: 70486; 99285

== ENCOUNTER 2019-07-19 04:21 | Inpatient (IN) | payer MEDICARE, MEDICAID ==
[~2019-07-19] VITALS: Ht 175.3 cm; Wt 74.4 kg
[2019-07-19] MEDS ORDERED: IPRATROPIUM BROMIDE (0.02%) 0.5MG/2.5ML NEB HHN STA (06:06)
[2019-07-19] MEDS ORDERED: ALBUTEROL (0.083%) 2.5MG/3ML NEB HHN STA (06:06)
[2019-07-19] MEDS ORDERED: MAGNESIUM 2 G PREMIX 50 ML IV STA (06:06)
[2019-07-19] MEDS ORDERED: METHYLPREDNISOLONE SOD SUCC 125 MG/2 ML VIAL IV STA (06:06)
[2019-07-19] MEDS ORDERED: ALBUTEROL (0.5%) 2.5MG/0.5ML NEB HHN ONE (06:24)
[2019-07-19] MEDS ORDERED: IPRATROPIUM BROMIDE (0.02%) 0.5MG/2.5ML NEB ONE (06:26)
[2019-07-19 07:09] LABS: HEMATOCRIT. 44.3 % (42.0-52.0); HEMOGLOBIN. 14.6 g/dL (14.0-18.0); MEAN CORPUSCULAR HEMOGLOBIN 33.2 pg (28.0-32.0); MEAN CORPUSCULAR VOLUME 100.3 fL (80.0-94.0); PLATELET 211 x1000/uL (130-400); RED BLOOD CELL COUNT 4.41 mill/uL (4.7-6.1); RED CELL DISTRIBUTION WIDTH 14.1 % (11.6-14.6)
[2019-07-19 07:12] LABS: CHLORIDE 100 mEq/L (98-107)
[2019-07-19 07:35] LABS: PLATELET ESTIMATE NORMAL
[2019-07-19 10:00] VITALS: BP 122/81
[2019-07-19 12:00] VITALS: BP 117/77
[2019-07-19] MEDS ORDERED: LORAZEPAM 0.5MG TABLET PO PRN (12:15)
[2019-07-19] MEDS ORDERED: DIPHENHYDRAMINE 50MG/ML VIAL IV PRN (12:15)
[2019-07-19] MEDS ORDERED: NA PHOS,M-B/NA PHOS,DI-BA ENEMA 118ML PR PRN (12:15)
[2019-07-19] MEDS ORDERED: GUAIFENESIN 200MG/10ML SUGAR FREE UDC PO PRN (12:15)
[2019-07-19] MEDS ORDERED: IPRATROPIUM/ALBUTEROL 0.5-3(2.5)MG/3ML NEB NEB PRN (12:15)
[2019-07-19] MEDS ORDERED: ONDANSETRON HCL 4MG/2ML INJ IV PRN (12:15)
[2019-07-19] MEDS ORDERED: CLONIDINE 0.1MG TABLET PO PRN (12:15)
[2019-07-19] MEDS ORDERED: DOCUSATE SODIUM 100MG CAPSULE PO PRN (12:15)
[2019-07-19] MEDS ORDERED: MAGNESIUM/ALUMINUM HYDROXIDE/SIMETHICONE 30ML UDC PO PRN (12:15)
[2019-07-19] MEDS ORDERED: HYDROCODONE/ACETAMINOPHEN 5/325MG TABLET PO PRN (12:15)
[2019-07-19] MEDS ORDERED: ACETAMINOPHEN 325MG TABLET PO PRN (12:15)
[2019-07-19] MEDS ORDERED: LEVOFLOXACIN 500MG PREMIX 100 ML IV SCH (12:15)
[2019-07-19] MEDS ORDERED: ACETAMINOPHEN 650MG SUPP PR PRN (12:15)
[2019-07-19 12:34] LABS: BG BASE EXCESS 6.3 mmol/L (-2.0-2.0); BG CARBOXYHEMOGLOBIN 0.9 % (0.5-1.5); BG DEOXYHEMOGLOBIN 9.7 % (0.0-5.0); BG HCO3 ACT 32.9 mmol/L (22.0-26.0); BG METHEMOGLOBIN 0.3 % (0.0-1.5); BG OXYGEN SATURATION 90.2 % (92.0-98.5); BG OXYHEMOGLOBIN 89.1 % (94.0-97.0); BG PCO2 54.3 mmHg (35.0-45.0); BG PO2 59.1 mmHg (75.0-100.0); BG SAMPLE SITE RIGHT RADIAL; BG TOTAL HEMOGLOBIN 15.5 g/dL (12.0-18.0); BG VENT MODE NASAL CANNULA
[2019-07-19] MEDS: METHYLPREDNISOLONE SOD SUCC 40 MG/ML VIAL IV SCH ×2 (14:06→22:00)
[2019-07-19] MEDS: LEVOFLOXACIN 500MG PREMIX 100 ML IV SCH (14:21)
[2019-07-19 15:50] LABS: INR 1.2; PROTHROMBIN TIME 12.7 sec (9.6-11.0)
[2019-07-19 15:56] LABS: CREATINE KINASE 54 IU/L (39-308)
[2019-07-19] MEDS: ENOXAPARIN 40MG/0.4ML SYR SUBCUT SCH (15:56)
[2019-07-19 15:57] LABS: CREATINE KINASE MB FRACTION 1.5 ng/mL (0.5-3.6)
[2019-07-19 16:41] LABS: CLARITY URINE CLEAR (CLEAR); COLOR URINE YELLOW (YELLOW); KETONES URINE NEGATIVE (NEGATIVE); LEUKOCYTE ESTERASE URINE 2+ (NEGATIVE); NITRITE URINE NEGATIVE (NEGATIVE); OCCULT BLOOD URINE NEGATIVE (NEGATIVE); PH URINE 6.5 (4.5-8.0); PROTEIN URINE NEGATIVE (NEGATIVE); SPECIFIC GRAVITY URINE 1.017 (1.005-1.030)
[2019-07-19 17:03] LABS: *AMPHETAMINES SCREEN URINE NEGATIVE (NEGATIVE); *BARBITURATES SCREEN URINE NEGATIVE (NEGATIVE); *BENZODIAZEPINES SCREEN URINE NEGATIVE (NEGATIVE); *COCAINE SCREEN URINE NEGATIVE (NEGATIVE); METHADONE URINE SCREEN NEGATIVE (NEGATIVE)
[2019-07-19 17:04] LABS: CANNABINOID URINE SCREEN PRESUMTIVE POSITIVE (NEGATIVE); OPIATES URINE SCREEN NEGATIVE (NEGATIVE); PHENCYCLIDINE URINE SCREEN NEGATIVE (NEGATIVE)
[2019-07-19] MEDS: FAMOTIDINE 20MG TABLET PO SCH (21:00)
[2019-07-19] MEDS: IPRATROPIUM/ALBUTEROL 0.5-3(2.5)MG/3ML NEB NEB SCH (22:08)
[2019-07-20 00:21] LABS: CREATINE KINASE 52 IU/L (39-308)
[2019-07-20 00:22] LABS: CREATINE KINASE MB FRACTION 1.5 ng/mL (0.5-3.6)
[2019-07-20] MEDS: IPRATROPIUM/ALBUTEROL 0.5-3(2.5)MG/3ML NEB NEB SCH ×3 (00:52→21:34)
[2019-07-20] MEDS: ACETYLCYSTEINE 100MG/ML 10% VIAL 4ML INH SCH ×2 (00:54→06:00)
[2019-07-20] MEDS: METHYLPREDNISOLONE SOD SUCC 40 MG/ML VIAL IV SCH ×2 (06:00→13:16)
[2019-07-20 06:10] LABS: BASOPHILS % 0.1 % (0.0-2.0); HEMATOCRIT. 41.2 % (42.0-52.0); HEMOGLOBIN. 13.9 g/dL (14.0-18.0); LYMPHOCYTES % 7.7 % (20.0-50.0); MEAN CORPUSCULAR HEMOGLOBIN 33.5 pg (28.0-32.0); MEAN CORPUSCULAR VOLUME 99.4 fL (80.0-94.0); MEAN PLATELET VOLUME 9.9 fl (7.4-10.4); NEUTROPHILS % 85.2 % (40.0-76.0); PLATELET 202 x1000/uL (130-400); RED BLOOD CELL COUNT 4.15 mill/uL (4.7-6.1); RED CELL DISTRIBUTION WIDTH 13.7 % (11.6-14.6)
[2019-07-20 06:11] LABS: CHLORIDE 96 mEq/L (98-107)
[2019-07-20 06:19] LABS: HDL CHOLESTEROL 46 mg/dL (40-59); LDL CHOLESTEROL 59 mg/dL (5-100)
[2019-07-20 06:21] LABS: T4 FREE 1.13 ng/dL (0.76-1.46)
[2019-07-20 08:00] VITALS: BP 112/64
[2019-07-20] MEDS: ENOXAPARIN 40MG/0.4ML SYR SUBCUT SCH (08:00)
[2019-07-20] MEDS: LEVOFLOXACIN 500MG PREMIX 100 ML IV SCH (10:42)
[2019-07-20 12:00] VITALS: BP 97/56
[2019-07-20 16:00] VITALS: BP 102/57
[2019-07-20] MEDS: FAMOTIDINE 20MG TABLET PO SCH (21:49)
[2019-07-20 23:42] VITALS: BP 99/52
[2019-07-21] MEDS: METHYLPREDNISOLONE SOD SUCC 40 MG/ML VIAL IV SCH ×2 (02:11→15:15)
[2019-07-21] MEDS: IPRATROPIUM/ALBUTEROL 0.5-3(2.5)MG/3ML NEB NEB SCH ×4 (03:59→21:07)
[2019-07-21 07:16] LABS: HEMOGLOBIN. 13.8 g/dL (14.0-18.0); MEAN CORPUSCULAR HEMOGLOBIN 33.7 pg (28.0-32.0); MEAN CORPUSCULAR VOLUME 100.1 fL (80.0-94.0); MEAN PLATELET VOLUME 9.9 fl (7.4-10.4); PLATELET 201 x1000/uL (130-400)
[2019-07-21 08:04] LABS: CHLORIDE 99 mEq/L (98-107)
[2019-07-21 08:14] VITALS: BP 107/65
[2019-07-21] MEDS: ENOXAPARIN 40MG/0.4ML SYR SUBCUT SCH (09:36)
[2019-07-21] MEDS: ACETYLCYSTEINE 100MG/ML 10% VIAL 4ML INH SCH ×2 (09:49→21:07)
[2019-07-21 11:03] LABS: PLATELET ESTIMATE NORMAL
[2019-07-21] MEDS: LEVOFLOXACIN 500MG PREMIX 100 ML IV SCH (12:32)
[2019-07-21 16:13] VITALS: BP 98/42
[2019-07-21 20:00] VITALS: BP 100/64
[2019-07-21] MEDS: FAMOTIDINE 20MG TABLET PO SCH (21:39)
[2019-07-22] VITALS: BP 124/58
[2019-07-22] MEDS: METHYLPREDNISOLONE SOD SUCC 40 MG/ML VIAL IV SCH ×2 (02:04→14:33)
[2019-07-22] MEDS: IPRATROPIUM/ALBUTEROL 0.5-3(2.5)MG/3ML NEB NEB SCH ×4 (02:05→20:50)
[2019-07-22 04:00] VITALS: BP 94/47
[2019-07-22 08:00] VITALS: BP 142/76
[2019-07-22] MEDS: ENOXAPARIN 40MG/0.4ML SYR SUBCUT SCH (08:53)
[2019-07-22] MEDS: ACETYLCYSTEINE 100MG/ML 10% VIAL 4ML INH SCH ×2 (10:56→15:14)
[2019-07-22] MEDS: LEVOFLOXACIN 500MG PREMIX 100 ML IV SCH (12:26)
[2019-07-22 16:00] VITALS: BP 110/64
[2019-07-22 20:00] VITALS: BP 111/71
[2019-07-22 20:43] VITALS: BP 111/71
[2019-07-22] MEDS: FAMOTIDINE 20MG TABLET PO SCH (21:07)
== END 2019-07-22 22:00 | disposition home or self-care (01) | DRG 190 ==
LOC: ER 04:21 → 6WST 07:00 → EDBEDREQTM 07:03 → EDBEDREQ 07:03 → ENRESERV 08:38
PROVIDERS: ADMIT Internal Medicine; ATTEND Internal Medicine
DX: J44.1 Chronic obstructive pulmonary disease with (acute) exacerbation (principal); J18.9 Pneumonia, unspecified organism; D68.59 Other primary thrombophilia; E87.1 Hypo-osmolality and hyponatremia; J44.0 Chronic obstructive pulmonary disease with (acute) lower respiratory infection; J20.9 Acute bronchitis, unspecified; Y92.89 Other specified places as the place of occurrence of the external cause; B19.20 Unspecified viral hepatitis C without hepatic coma; R09.02 Hypoxemia; D72.1 Eosinophilia; T38.0X5A Adverse effect of glucocorticoids and synthetic analogues, initial encounter; I10 Essential (primary) hypertension; F17.200 Nicotine dependence, unspecified, uncomplicated; Z91.19 Patient's noncompliance with other medical treatment and regimen
CPT/HCPCS: 36415; 36600; 71045; 80053; 80061; 80305; 81003; 82375; 82550; 82553; 82805; 83880; 84439; 84443; 84484; 85025; 87070; 93005; 94618; 94640; 97162; 99291; J1650; J1956; J2920; J2930; J3475; J7608

== ENCOUNTER 2019-11-11 13:10 | Inpatient (IN) | payer MEDICARE, MEDICAID ==
[~2019-11-11] VITALS: Ht 177.8 cm; Wt 58.5 kg
[2019-11-11 06:38] VITALS: BP 112/80
[2019-11-11] MEDS ORDERED: SODIUM CHLORIDE 0.9% 1,000 ML IV ONE (14:23)
[2019-11-11] MEDS ORDERED: AZITHROMYCIN 500 MG in DEXT 5% WATER 250 ML IV ONE (14:30)
[2019-11-11] MEDS ORDERED: CEFTRIAXONE 1 G PREMIX 50 ML IV ONE (14:30)
[2019-11-11] MEDS ORDERED: ALBUTEROL 6.7GM HFA INHALER ORI ONE ×3 (14:30)
[2019-11-11] MEDS ORDERED: ASPIRIN 81MG TABLET PO ONE (14:30)
[2019-11-11] MEDS ORDERED: METHYLPREDNISOLONE SOD SUCC 125 MG/2 ML VIAL IV ONE (14:30)
[2019-11-11 14:44] LABS: CHLORIDE 99 mEq/L (98-107)
[2019-11-11 14:53] LABS: HEMATOCRIT. 42.3 % (42.0-52.0); HEMOGLOBIN. 14.4 g/dL (14.0-18.0); MEAN CORPUSCULAR HEMOGLOBIN 33.7 pg (28.0-32.0); MEAN CORPUSCULAR VOLUME 98.7 fL (80.0-94.0); MEAN PLATELET VOLUME 9.3 fl (7.4-10.4); PLATELET 232 x1000/uL (130-400); RED BLOOD CELL COUNT 4.29 mill/uL (4.7-6.1); RED CELL DISTRIBUTION WIDTH 13.3 % (11.6-14.6)
[2019-11-11] MEDS ORDERED: GUAIFENESIN 200MG/10ML SUGAR FREE UDC PO PRN (17:00)
[2019-11-11] MEDS ORDERED: DOCUSATE SODIUM 100MG CAPSULE PO PRN (17:00)
[2019-11-11] MEDS ORDERED: KETOROLAC 15MG/ML VIAL IV PRN (17:00)
[2019-11-11] MEDS ORDERED: ALBUTEROL 6.7GM HFA INHALER ORI PRN (17:00)
[2019-11-11] MEDS ORDERED: MAGNESIUM/ALUMINUM HYDROXIDE/SIMETHICONE 30ML UDC PO PRN (17:00)
[2019-11-11] MEDS ORDERED: CLONIDINE 0.1MG TABLET PO PRN (17:00)
[2019-11-11] MEDS ORDERED: ONDANSETRON HCL 4MG/2ML INJ IV PRN (17:00)
[2019-11-11] MEDS ORDERED: IPRATROPIUM/ALBUTEROL 0.5-3(2.5)MG/3ML NEB NEB PRN (17:00)
[2019-11-11] MEDS ORDERED: ACETAMINOPHEN 325MG TABLET PO PRN ×2 (17:00)
[2019-11-11] MEDS ORDERED: TRAMADOL 50MG TABLET PO PRN (17:00)
[2019-11-11] MEDS ORDERED: NITROGLYCERIN 0.4MG TABLET SL SL PRN (17:00)
[2019-11-11 18:19] LABS: PLATELET ESTIMATE NORMAL
[2019-11-11] MEDS: ENOXAPARIN 30MG/0.3ML SYR SUBCUT SCH (18:30)
[2019-11-11] MEDS: ASCORBIC ACID 500 MG TABLET PO SCH (21:00)
[2019-11-11] MEDS: GUAIFENESIN/DM 600MG/30MG ER TAB 12HR PO SCH (21:00)
[2019-11-11] MEDS ORDERED: ZOLPIDEM TARTRATE 5MG TABLET PO PRN (21:00)
[2019-11-11 23:16] LABS: CREATINE KINASE 54 IU/L (39-308)
[2019-11-11 23:17] LABS: CREATINE KINASE MB FRACTION 1.5 ng/mL (0.5-3.6)
[2019-11-12] MEDS: METHYLPREDNISOLONE SOD SUCC 125 MG/2 ML VIAL IV SCH ×4 (01:17→22:35)
[2019-11-12 06:00] VITALS: BP 112/80
[2019-11-12] MEDS ORDERED: CEFTRIAXONE 1 G PREMIX 50 ML IV SCH (09:00)
[2019-11-12] MEDS: GUAIFENESIN/DM 600MG/30MG ER TAB 12HR PO SCH ×2 (09:03→22:35)
[2019-11-12] MEDS: ASCORBIC ACID 500 MG TABLET PO SCH ×2 (09:03→22:35)
[2019-11-12] MEDS: ZINC SULFATE 220 MG ( 50 ) CAPSULE PO SCH (09:03)
[2019-11-12 09:40] LABS: CREATINE KINASE 52 IU/L (39-308)
[2019-11-12 09:42] LABS: CREATINE KINASE MB FRACTION 2.5 ng/mL (0.5-3.6)
[2019-11-12 12:00] VITALS: BP 114/70
[2019-11-12] MEDS: CEFTRIAXONE 1,000 MG in DEXTROSE 5% WATER 50 ML IV SCH (12:42)
[2019-11-12] MEDS ORDERED: AZITHROMYCIN 500 MG in DEXT 5% WATER 250 ML IV SCH (14:00)
[2019-11-12] MEDS: AZITHROMYCIN 500 MG in DEXT 5% WATER 250 ML IV SCH (14:05)
[2019-11-12 16:00] VITALS: BP 117/74
[2019-11-12] MEDS: ENOXAPARIN 30MG/0.3ML SYR SUBCUT SCH (17:07)
[2019-11-12] MEDS: IPRATROPIUM/ALBUTEROL 0.5-3(2.5)MG/3ML NEB HHN SCH (18:16)
[2019-11-12 20:00] VITALS: BP 138/62
[2019-11-13] VITALS: BP 131/66
[2019-11-13] MEDS: IPRATROPIUM/ALBUTEROL 0.5-3(2.5)MG/3ML NEB HHN SCH ×6 (00:23→21:18)
[2019-11-13 04:00] VITALS: BP 103/59
[2019-11-13] MEDS: METHYLPREDNISOLONE SOD SUCC 125 MG/2 ML VIAL IV SCH ×3 (05:10→21:26)
[2019-11-13 08:00] VITALS: BP 105/65
[2019-11-13] MEDS: GUAIFENESIN/DM 600MG/30MG ER TAB 12HR PO SCH ×2 (08:21→21:26)
[2019-11-13] MEDS: ASCORBIC ACID 500 MG TABLET PO SCH ×2 (08:21→21:26)
[2019-11-13] MEDS: ZINC SULFATE 220 MG ( 50 ) CAPSULE PO SCH (08:21)
[2019-11-13 12:00] VITALS: BP 110/68
[2019-11-13] MEDS: CEFTRIAXONE 1,000 MG in DEXTROSE 5% WATER 50 ML IV SCH (13:20)
[2019-11-13] MEDS: AZITHROMYCIN 500 MG in DEXT 5% WATER 250 ML IV SCH (14:36)
[2019-11-13 16:00] VITALS: BP 135/66
[2019-11-13] MEDS: ENOXAPARIN 30MG/0.3ML SYR SUBCUT SCH (17:39)
[2019-11-13 20:00] VITALS: BP 125/56
[2019-11-13] MEDS: ACETYLCYSTEINE 100MG/ML 10% VIAL 4ML INH SCH (21:18)
[2019-11-14] VITALS: BP_SYST 116; BP_DIAS 63; BP_DIAS 68
[2019-11-14] MEDS: IPRATROPIUM/ALBUTEROL 0.5-3(2.5)MG/3ML NEB HHN SCH ×5 (00:55→17:06)
[2019-11-14 04:00] VITALS: BP 117/63
[2019-11-14] MEDS: METHYLPREDNISOLONE SOD SUCC 125 MG/2 ML VIAL IV SCH ×2 (05:05→13:46)
[2019-11-14 08:00] VITALS: BP 112/59
[2019-11-14] MEDS: GUAIFENESIN/DM 600MG/30MG ER TAB 12HR PO SCH (08:42)
[2019-11-14] MEDS: ZINC SULFATE 220 MG ( 50 ) CAPSULE PO SCH (08:42)
[2019-11-14] MEDS: ASCORBIC ACID 500 MG TABLET PO SCH (08:42)
[2019-11-14] MEDS: ACETYLCYSTEINE 100MG/ML 10% VIAL 4ML INH SCH ×2 (09:40→14:24)
[2019-11-14 11:33] LABS: BG BASE EXCESS 0.8 mmol/L (-2.0-2.0); BG CARBOXYHEMOGLOBIN 0.1 % (0.5-1.5); BG DEOXYHEMOGLOBIN 10.1 % (0.0-5.0); BG FRACTION INSPIRED OXYGEN 21; BG HCO3 ACT 25.9 mmol/L (22.0-26.0); BG METHEMOGLOBIN 0.1 % (0.0-1.5); BG OXYGEN SATURATION 89.9 % (92.0-98.5); BG OXYHEMOGLOBIN 89.7 % (94.0-97.0); BG PCO2 43.2 mmHg (35.0-45.0); BG PH 7.396 (7.350-7.450); BG PO2 59.5 mmHg (75.0-100.0); BG SAMPLE SITE RIGHT RADIAL; BG VENT MODE ROOM AIR
[2019-11-14 12:00] VITALS: BP 141/48
[2019-11-14] MEDS: AZITHROMYCIN 500 MG in DEXT 5% WATER 250 ML IV SCH (13:29)
[2019-11-14] MEDS: CEFTRIAXONE 1,000 MG in DEXTROSE 5% WATER 50 ML IV SCH (13:43)
[2019-11-14 14:00] VITALS: BP 135/66
[2019-11-14] MEDS ORDERED: GUAI600T26 MT (14:18)
[2019-11-14 15:10] VITALS: BP 130/65
== END 2019-11-14 17:51 | disposition home or self-care (01) | DRG 871 ==
LOC: ER 13:10 → MICUSO 16:41 → SUPCPDRO 16:45 → 7WST 11-12 02:43 → 5WST 11-12 15:21
PROVIDERS: ADMIT Internal Medicine; ATTEND Internal Medicine
DX: A41.9 Sepsis, unspecified organism (principal); J96.01 Acute respiratory failure with hypoxia; J18.9 Pneumonia, unspecified organism; J44.1 Chronic obstructive pulmonary disease with (acute) exacerbation; E87.1 Hypo-osmolality and hyponatremia; J82 Pulmonary eosinophilia, not elsewhere classified; J44.0 Chronic obstructive pulmonary disease with (acute) lower respiratory infection; Z20.828 Contact with and (suspected) exposure to other viral communicable diseases; B19.20 Unspecified viral hepatitis C without hepatic coma; F17.210 Nicotine dependence, cigarettes, uncomplicated; I10 Essential (primary) hypertension; I48.91 Unspecified atrial fibrillation; Z79.51 Long term (current) use of inhaled steroids; Z79.899 Other long term (current) drug therapy
CPT/HCPCS: 36415; 36600; 71045; 80053; 82375; 82550; 82553; 82805; 83036; 83605; 83880; 84484; 85025; 87070; 87420; 87430; 87635; 87804; 93005; 93970; 94640; 96365; 97116; 97162; 97166; 97535; 99285; J0456; J0696; J1650; J2930; J7030; J7060; J7608

== ENCOUNTER 2020-01-15 14:51 | Inpatient (IN) | payer MEDICARE, MEDICAID ==
[~2020-01-15] VITALS: Ht 177.8 cm; Wt 59.4 kg
[~2020-01-15 14:51] MED LIST changes: +GUAI600T26 MT
[2020-01-15] MEDS ORDERED: ALBUTEROL (0.083%) 2.5MG/3ML NEB HHN STA (15:22)
[2020-01-15] MEDS ORDERED: IPRATROPIUM BROMIDE (0.02%) 0.5MG/2.5ML NEB HHN STA (15:22)
[2020-01-15] MEDS ORDERED: METHYLPREDNISOLONE SOD SUCC 125 MG/2 ML VIAL IV STA (15:22)
[2020-01-15] MEDS ORDERED: ASPIRIN 81MG TABLET PO ONE (15:30)
[2020-01-15 16:15] LABS: HEMATOCRIT. 44.3 % (42.0-52.0); HEMOGLOBIN. 15.1 g/dL (14.0-18.0); MEAN CORPUSCULAR HEMOGLOBIN 33.7 pg (28.0-32.0); MEAN CORPUSCULAR VOLUME 99.2 fL (80.0-94.0); MEAN PLATELET VOLUME 9.8 fl (7.4-10.4); PLATELET 236 x1000/uL (130-400); RED BLOOD CELL COUNT 4.47 mill/uL (4.7-6.1); RED CELL DISTRIBUTION WIDTH 13.8 % (11.6-14.6)
[2020-01-15 16:31] LABS: CHLORIDE 99 mEq/L (98-107)
[2020-01-15 16:41] LABS: PLATELET ESTIMATE NORMAL
[2020-01-15] MEDS ORDERED: SODIUM CHLORIDE 0.9% 500 ML IV SCH (19:00)
[2020-01-15] MEDS ORDERED: CLONIDINE 0.1MG TABLET PO PRN (22:45)
[2020-01-15] MEDS ORDERED: IPRATROPIUM/ALBUTEROL 0.5-3(2.5)MG/3ML NEB NEB PRN (22:45)
[2020-01-15] MEDS ORDERED: ONDANSETRON HCL 4MG/2ML INJ IV PRN (22:45)
[2020-01-15] MEDS ORDERED: ACETAMINOPHEN 325MG TABLET PO PRN (22:45)
[2020-01-15] MEDS ORDERED: DOCUSATE SODIUM 100MG CAPSULE PO PRN (22:45)
[2020-01-15] MEDS ORDERED: GUAIFENESIN 200MG/10ML SUGAR FREE UDC PO PRN (22:45)
[2020-01-15] MEDS ORDERED: HYDROCODONE/ACETAMINOPHEN 5/325MG TABLET PO PRN (22:45)
[2020-01-15] MEDS ORDERED: LEVOFLOXACIN 500MG PREMIX 100 ML IV SCH (23:30)
[2020-01-16] VITALS (7 sets, daily range): BP systolic 117–133; BP diastolic 62–77
[2020-01-16] MEDS: METHYLPREDNISOLONE SOD SUCC 125 MG/2 ML VIAL IV SCH ×5 (01:29→23:39)
[2020-01-16] MEDS: ENOXAPARIN 40MG/0.4ML SYR SUBCUT SCH ×2 (01:29→20:49)
[2020-01-16] MEDS ORDERED: FLUT1BLS9 PO (02:40)
[2020-01-16] MEDS: LEVOFLOXACIN 500MG PREMIX 100 ML IV SCH (04:32)
[2020-01-16] MEDS ORDERED: ALBUTEROL 6.7GM HFA INHALER ORI PRN (05:00)
[2020-01-16 06:07] LABS: CHLORIDE 100 mEq/L (98-107)
[2020-01-16 06:22] LABS: HEMATOCRIT. 42.7 % (42.0-52.0); HEMOGLOBIN. 14.6 g/dL (14.0-18.0); LYMPHOCYTES % 10.7 % (20.0-50.0); MEAN CORPUSCULAR HEMOGLOBIN 33.7 pg (28.0-32.0); MEAN CORPUSCULAR VOLUME 98.8 fL (80.0-94.0); MEAN PLATELET VOLUME 9.9 fl (7.4-10.4); MONOCYTES % 1.3 % (2.0-8.0); PLATELET 183 x1000/uL (130-400); RED BLOOD CELL COUNT 4.32 mill/uL (4.7-6.1); RED CELL DISTRIBUTION WIDTH 13.6 % (11.6-14.6)
[2020-01-16] MEDS ORDERED: INFLUENZA VACCINE 05/PF 0.5 ML VIAL IM ONE (12:00)
[2020-01-17] VITALS: BP 131/76
[2020-01-17 04:00] VITALS: BP 106/56
[2020-01-17] MEDS: LEVOFLOXACIN 500MG PREMIX 100 ML IV SCH (04:29)
[2020-01-17] MEDS: METHYLPREDNISOLONE SOD SUCC 125 MG/2 ML VIAL IV SCH ×3 (05:05→17:38)
[2020-01-17] MEDS ORDERED: INFLUENZA VACCINE 05/PF 0.5 ML VIAL IM ONE (06:00)
[2020-01-17 08:00] VITALS: BP 116/53
[2020-01-17] MEDS: IPRATROPIUM/ALBUTEROL 0.5-3(2.5)MG/3ML NEB NEB SCH ×2 (09:31→21:25)
[2020-01-17 12:00] VITALS: BP 120/73
[2020-01-17 16:00] VITALS: BP 103/52
[2020-01-17 20:00] VITALS: BP 101/70
[2020-01-17] MEDS: ENOXAPARIN 40MG/0.4ML SYR SUBCUT SCH (21:23)
[2020-01-18] VITALS: BP 97/58
[2020-01-18] MEDS: METHYLPREDNISOLONE SOD SUCC 125 MG/2 ML VIAL IV SCH ×3 (00:55→12:35)
[2020-01-18] MEDS: IPRATROPIUM/ALBUTEROL 0.5-3(2.5)MG/3ML NEB NEB SCH ×3 (02:22→14:23)
[2020-01-18] MEDS: LEVOFLOXACIN 500MG PREMIX 100 ML IV SCH (03:37)
[2020-01-18 04:00] VITALS: BP 110/55
[2020-01-18 08:00] VITALS: BP 108/63
[2020-01-18 12:27] VITALS: BP 110/56
[2020-01-18 13:16] VITALS: BP 110/56
[2020-01-18] MEDS ORDERED: LEVOFLOXACIN 500MG TABLET PO SCH (18:00)
== END 2020-01-18 16:00 | disposition home or self-care (01) | DRG 189 ==
LOC: ER 14:51 → 7EST 20:44 → EDBEDREQ 20:46 → EDBEDREQTM 20:46 → ENRESERV 22:34 → 5WST 01-16 21:05
PROVIDERS: ADMIT Hospitalist; ATTEND Hospitalist
DX: J96.00 Acute respiratory failure, unspecified whether with hypoxia or hypercapnia (principal); E43 Unspecified severe protein-calorie malnutrition; J44.1 Chronic obstructive pulmonary disease with (acute) exacerbation; Z68.1 Body mass index [BMI] 19.9 or less, adult; R74.01 Elevation of levels of liver transaminase levels; Z20.828 Contact with and (suspected) exposure to other viral communicable diseases; Z82.49 Family history of ischemic heart disease and other diseases of the circulatory system; Z79.899 Other long term (current) drug therapy; Z86.19 Personal history of other infectious and parasitic diseases; Z99.81 Dependence on supplemental oxygen
CPT/HCPCS: 36415; 71045; 80053; 83880; 84484; 85025; 87635; 90686; 93005; 94640; 97162; 97166; 99291; J1650; J1956; J2930

== ENCOUNTER 2020-04-06 19:04 | Inpatient (IN) | payer MEDICARE, MEDICAID ==
[~2020-04-06] VITALS: Ht 177.8 cm; Wt 65.9 kg
[~2020-04-06 19:04] MED LIST changes: +FLUT1BLS9 PO
[2020-04-06 22:00] LABS: HEMATOCRIT. 48.9 % (42.0-52.0); HEMOGLOBIN. 16.5 g/dL (14.0-18.0); MEAN CORPUSCULAR VOLUME 97.8 fL (80.0-94.0); PLATELET 204 x1000/uL (130-400)
[2020-04-06 22:03] LABS: CHLORIDE 95 mEq/L (98-107)
[2020-04-06 22:27] LABS: PLATELET ESTIMATE NORMAL
[2020-04-06] MEDS ORDERED: METHYLPREDNISOLONE SOD SUCC 125 MG/2 ML VIAL IV STA (23:10)
[2020-04-06] MEDS ORDERED: IPRATROPIUM BROMIDE (0.02%) 0.5MG/2.5ML NEB HHN STA (23:10)
[2020-04-06] MEDS: ALBUTEROL (0.083%) 2.5MG/3ML NEB HHN SCH (23:30)
[2020-04-07] MEDS: ALBUTEROL (0.083%) 2.5MG/3ML NEB HHN SCH ×2 (00:10→00:30)
[2020-04-07] MEDS ORDERED: CLONIDINE 0.1MG TABLET PO PRN (02:30)
[2020-04-07] MEDS ORDERED: DIPHENHYDRAMINE 50MG/ML VIAL IV PRN (02:30)
[2020-04-07] MEDS ORDERED: ONDANSETRON HCL 4MG/2ML INJ IV PRN (02:30)
[2020-04-07] MEDS ORDERED: MAGNESIUM/ALUMINUM HYDROXIDE/SIMETHICONE 30ML UDC PO PRN (02:30)
[2020-04-07] MEDS ORDERED: BENZONATATE 100MG CAPSULE PO PRN (02:30)
[2020-04-07] MEDS ORDERED: ACETAMINOPHEN 325MG TABLET PO PRN ×2 (02:30)
[2020-04-07] MEDS ORDERED: GUAIFENESIN 200MG/10ML SUGAR FREE UDC PO PRN (02:30)
[2020-04-07] MEDS ORDERED: IPRATROPIUM/ALBUTEROL 0.5-3(2.5)MG/3ML NEB HHN PRN (02:30)
[2020-04-07] MEDS ORDERED: ENOXAPARIN 30MG/0.3ML SYR SUBCUT SCH (03:00)
[2020-04-07] MEDS: LEVOFLOXACIN 500MG PREMIX 100 ML IV SCH (03:48)
[2020-04-07] MEDS: GUAIFENESIN 600MG ER TABLET PO SCH (09:00)
[2020-04-07] MEDS: FAMOTIDINE 20MG TABLET PO SCH (10:00)
[2020-04-07] MEDS: SODIUM CHLORIDE 0.9% INJ 3ML FLUSH IVF SCH ×3 (10:00→22:00)
[2020-04-07] MEDS: METHYLPREDNISOLONE SOD SUCC 125 MG/2 ML VIAL IV SCH ×2 (10:00→15:30)
[2020-04-08] VITALS (10 sets, daily range): BP systolic 110–140; BP diastolic 58–82
[2020-04-08] MEDS: GUAIFENESIN 600MG ER TABLET PO SCH ×3 (03:11→20:57)
[2020-04-08] MEDS: METHYLPREDNISOLONE SOD SUCC 125 MG/2 ML VIAL IV SCH ×4 (03:11→21:00)
[2020-04-08] MEDS: FAMOTIDINE 20MG TABLET PO SCH ×3 (03:11→20:57)
[2020-04-08] MEDS: ENOXAPARIN 30MG/0.3ML SYR SUBCUT SCH (03:11)
[2020-04-08] MEDS: SODIUM CHLORIDE 0.9% INJ 3ML FLUSH IVF SCH ×3 (05:10→21:00)
[2020-04-08] MEDS: IPRATROPIUM/ALBUTEROL 0.5-3(2.5)MG/3ML NEB HHN SCH ×2 (13:09→22:00)
[2020-04-08] MEDS ORDERED: MONTELUKAST SODIUM 10MG TABLET PO SCH (17:00)
[2020-04-09 00:11] VITALS: BP 107/43
[2020-04-09] MEDS: IPRATROPIUM/ALBUTEROL 0.5-3(2.5)MG/3ML NEB HHN SCH ×2 (00:59→09:54)
[2020-04-09] MEDS: LEVOFLOXACIN 500MG PREMIX 100 ML IV SCH (02:39)
[2020-04-09 04:00] VITALS: BP 114/65
[2020-04-09] MEDS: METHYLPREDNISOLONE SOD SUCC 125 MG/2 ML VIAL IV SCH ×2 (05:19→14:23)
[2020-04-09] MEDS: SODIUM CHLORIDE 0.9% INJ 3ML FLUSH IVF SCH ×2 (05:19→14:23)
[2020-04-09 08:00] VITALS: BP 102/66
[2020-04-09] MEDS: ENOXAPARIN 30MG/0.3ML SYR SUBCUT SCH (09:00)
[2020-04-09 09:52] VITALS: BP 105/63
[2020-04-09] MEDS: FAMOTIDINE 20MG TABLET PO SCH (10:00)
[2020-04-09] MEDS: GUAIFENESIN 600MG ER TABLET PO SCH (10:00)
[2020-04-09 10:06] LABS: HEMATOCRIT 41.2 % (42.0-52.0); HEMOGLOBIN 13.5 g/dL (14.0-18.0); MEAN CORPUSCULAR HEMOGLOBIN 32.4 pg (28.0-32.0); MEAN CORPUSCULAR VOLUME 99.3 fL (80.0-94.0); PLATELET 198 x1000/uL (130-400); RED BLOOD CELL COUNT 4.15 mill/uL (4.7-6.1); RED CELL DISTRIBUTION WIDTH 13.1 % (11.6-14.6)
[2020-04-09 10:22] LABS: CHLORIDE 95 mEq/L (98-107)
[2020-04-09 11:53] VITALS: BP 112/61
[2020-04-09 15:37] VITALS: BP 119/65
[2020-04-10] MEDS ORDERED: ENOXAPARIN 40MG/0.4ML SYR SUBCUT SCH (09:00)
== END 2020-04-09 16:05 | disposition home or self-care (01) | DRG 189 ==
LOC: ER 19:04 → MICUSO 04-07 01:05 → 3WST 04-08 02:15
PROVIDERS: ADMIT Internal Medicine; ATTEND Internal Medicine
DX: J96.01 Acute respiratory failure with hypoxia (principal); J82.81 Chronic eosinophilic pneumonia; J44.1 Chronic obstructive pulmonary disease with (acute) exacerbation; J44.0 Chronic obstructive pulmonary disease with (acute) lower respiratory infection; Z20.822 Contact with and (suspected) exposure to COVID-19; I48.91 Unspecified atrial fibrillation; I10 Essential (primary) hypertension; F17.200 Nicotine dependence, unspecified, uncomplicated; B19.20 Unspecified viral hepatitis C without hepatic coma; Z79.899 Other long term (current) drug therapy
CPT/HCPCS: 36415; 71045; 80048; 80053; 83880; 84484; 85025; 85027; 87635; 93005; 96365; 96372; 96374; 96376; 99285; J1650; J1956; J2930

== ENCOUNTER 2020-07-21 06:36 | Emergency (ER) | payer MEDICARE, MEDICAID ==
[~2020-07-21] VITALS: Ht 167.6 cm; Wt 69.0 kg
[2020-07-21] MEDS ORDERED: IPRATROPIUM BROMIDE (0.02%) 0.5MG/2.5ML NEB HHN STA (07:07)
[2020-07-21] MEDS ORDERED: ALBUTEROL (0.083%) 2.5MG/3ML NEB HHN STA (07:07)
[2020-07-21] MEDS ORDERED: METHYLPREDNISOLONE SOD SUCC 125 MG/2 ML VIAL IV STA (07:07)
[2020-07-21] MEDS ORDERED: SODIUM CHLORIDE 0.9% 1,000 ML IV ONE (07:15)
[2020-07-21 07:55] LABS: EOSINOPHILS % 13.3 % (0.0-5.0); HEMATOCRIT. 48.3 % (42.0-52.0); HEMOGLOBIN. 16.4 g/dL (14.0-18.0); LYMPHOCYTES % 27.6 % (20.0-50.0); MEAN CORPUSCULAR HEMOGLOBIN 33.4 pg (28.0-32.0); MEAN CORPUSCULAR VOLUME 98.7 fL (80.0-94.0); MEAN PLATELET VOLUME 9.8 fl (7.4-10.4); MONOCYTES % 12.8 % (2.0-8.0); NEUTROPHILS % 45.3 % (40.0-76.0); PLATELET 183 x1000/uL (130-400); RED BLOOD CELL COUNT 4.89 mill/uL (4.7-6.1); RED CELL DISTRIBUTION WIDTH 14.1 % (11.6-14.6)
[2020-07-21 08:00] LABS: CHLORIDE 99 mEq/L (98-107)
[2020-07-21] MEDS ORDERED: ALBUTEROL (0.083%) 2.5MG/3ML NEB HHN ONE (09:00)
[2020-07-21 09:53] LABS: CLARITY URINE CLEAR (CLEAR); COLOR URINE YELLOW (YELLOW); KETONES URINE NEGATIVE (NEGATIVE); LEUKOCYTE ESTERASE URINE TRACE (NEGATIVE); NITRITE URINE NEGATIVE (NEGATIVE); OCCULT BLOOD URINE NEGATIVE (NEGATIVE); PH URINE 7.5 (4.5-8.0); PROTEIN URINE NEGATIVE (NEGATIVE); SPECIFIC GRAVITY URINE 1.009 (1.005-1.030)
[2020-07-21 12:45] VITALS: BP 127/76
== END 2020-07-21 13:01 | disposition short-term general hospital (02) ==
LOC: ER 06:36
DX: J44.1 Chronic obstructive pulmonary disease with (acute) exacerbation (principal); F12.10 Cannabis abuse, uncomplicated; I10 Essential (primary) hypertension; Z20.822 Contact with and (suspected) exposure to COVID-19
CPT/HCPCS: 36415; 71045; 80053; 81003; 83880; 84484; 85025; 87040; 87106; 87426; 93005; 94640; 96361; 96374; 99285; J2930; J7030

== ENCOUNTER 2020-08-26 09:44 | Inpatient (IN) | payer MEDICARE, MEDICAID ==
[~2020-08-26] VITALS: Ht 177.8 cm; Wt 62.2 kg
[2020-08-26] MEDS ORDERED: MAGNESIUM 2 G PREMIX 50 ML IV STA (09:56)
[2020-08-26] MEDS ORDERED: METHYLPREDNISOLONE SOD SUCC 125 MG/2 ML VIAL IV STA (09:56)
[2020-08-26] MEDS ORDERED: IPRATROPIUM BROMIDE (0.02%) 0.5MG/2.5ML NEB HHN STA (09:56)
[2020-08-26] MEDS ORDERED: ALBUTEROL (0.083%) 2.5MG/3ML NEB HHN STA (09:56)
[2020-08-26] MEDS ORDERED: LEVOFLOXACIN 500MG PREMIX 100 ML IV ONE (10:00)
[2020-08-26 10:21] LABS: BASOPHILS % 1.1 % (0.0-2.0); EOSINOPHILS % 14.7 % (0.0-5.0); HEMATOCRIT. 45.8 % (42.0-52.0); HEMOGLOBIN. 15.5 g/dL (14.0-18.0); LYMPHOCYTES % 32.6 % (20.0-50.0); MEAN CORPUSCULAR HEMOGLOBIN 33.4 pg (28.0-32.0); MEAN CORPUSCULAR VOLUME 98.4 fL (80.0-94.0); MEAN PLATELET VOLUME 9.5 fl (7.4-10.4); MONOCYTES % 12.7 % (2.0-8.0); NEUTROPHILS % 38.9 % (40.0-76.0); PLATELET 203 x1000/uL (130-400); RED BLOOD CELL COUNT 4.65 mill/uL (4.7-6.1); RED CELL DISTRIBUTION WIDTH 13.6 % (11.6-14.6)
[2020-08-26 10:31] LABS: CHLORIDE 100 mEq/L (98-107)
[2020-08-26] MEDS ORDERED: ALBUTEROL (0.083%) 2.5MG/3ML NEB HHN ONE (19:30)
[2020-08-27 00:35] VITALS: BP_SYST 156; BP_DIAS 77; BP_DIAS 79
[2020-08-27] MEDS ORDERED: METHYLPREDNISOLONE SOD SUCC 40 MG/ML VIAL IV SCH (02:00)
[2020-08-27] MEDS ORDERED: HYDROCODONE/ACETAMINOPHEN 5/325MG TABLET PO PRN (02:15)
[2020-08-27] MEDS ORDERED: IPRATROPIUM/ALBUTEROL 0.5-3(2.5)MG/3ML NEB HHN PRN (02:15)
[2020-08-27] MEDS: IPRATROPIUM/ALBUTEROL 0.5-3(2.5)MG/3ML NEB HHN SCH ×4 (02:24→20:00)
[2020-08-27 08:49] VITALS: BP 102/73
[2020-08-27] MEDS ORDERED: ADVAIR PO SCH (09:00)
[2020-08-27] MEDS: BUDESONIDE 0.5MG/2ML NEB HHN SCH ×2 (09:00→21:01)
[2020-08-27] MEDS: ALBUTEROL (0.083%) 2.5MG/3ML NEB HHN SCH ×2 (09:00→21:01)
[2020-08-27] MEDS: ENOXAPARIN 40MG/0.4ML SYR SUBCUT SCH (09:20)
[2020-08-27] MEDS: METHYLPREDNISOLONE SOD SUCC 40 MG/ML VIAL IV SCH ×2 (11:58→18:11)
[2020-08-27 12:00] VITALS: BP 106/74
[2020-08-27] MEDS ORDERED: LEVOFLOXACIN 500MG PREMIX 100 ML IV SCH (13:00)
[2020-08-27 16:00] VITALS: BP 104/69
[2020-08-27 20:00] VITALS: BP 118/77
[2020-08-27] MEDS: FAMOTIDINE 20MG TABLET PO SCH (20:53)
[2020-08-27 23:53] VITALS: BP 112/50
[2020-08-27 23:59] LABS: CLARITY URINE CLEAR (CLEAR); COLOR URINE DARK YELLOW (YELLOW); KETONES URINE TRACE (NEGATIVE); LEUKOCYTE ESTERASE URINE NEGATIVE (NEGATIVE); NITRITE URINE NEGATIVE (NEGATIVE); OCCULT BLOOD URINE NEGATIVE (NEGATIVE); PH URINE 6.5 (4.5-8.0); PROTEIN URINE NEGATIVE (NEGATIVE)
[2020-08-28 00:18] LABS: *AMPHETAMINES SCREEN URINE NEGATIVE (NEGATIVE)
[2020-08-28 00:19] LABS: *BARBITURATES SCREEN URINE NEGATIVE (NEGATIVE); METHADONE URINE SCREEN NEGATIVE (NEGATIVE); OPIATES URINE SCREEN PRESUMTIVE POSITIVE (NEGATIVE); PHENCYCLIDINE URINE SCREEN NEGATIVE (NEGATIVE)
[2020-08-28 00:20] LABS: CANNABINOID URINE SCREEN PRESUMTIVE POSITIVE (NEGATIVE)
[2020-08-28 00:25] LABS: *COCAINE SCREEN URINE NEGATIVE (NEGATIVE)
[2020-08-28 00:46] LABS: *BENZODIAZEPINES SCREEN URINE NEGATIVE (NEGATIVE)
[2020-08-28] MEDS: ALBUTEROL (0.083%) 2.5MG/3ML NEB HHN SCH ×3 (02:37→21:42)
[2020-08-28] MEDS: METHYLPREDNISOLONE SOD SUCC 40 MG/ML VIAL IV SCH ×3 (03:11→18:30)
[2020-08-28 04:00] VITALS: BP 107/67
[2020-08-28 08:01] VITALS: BP 106/66
[2020-08-28] MEDS: IPRATROPIUM/ALBUTEROL 0.5-3(2.5)MG/3ML NEB HHN SCH (08:30)
[2020-08-28] MEDS: ENOXAPARIN 40MG/0.4ML SYR SUBCUT SCH (09:09)
[2020-08-28 09:34] LABS: BG BASE EXCESS 4.7 mmol/L (-2.0-2.0); BG CARBOXYHEMOGLOBIN 0.3 % (0.5-1.5); BG DEOXYHEMOGLOBIN 14.4 % (0.0-5.0); BG FRACTION INSPIRED OXYGEN 21; BG METHEMOGLOBIN 0.3 % (0.0-1.5); BG OXYGEN SATURATION 85.5 % (92.0-98.5); BG PCO2 57.9 mmHg (35.0-45.0); BG PH 7.361 (7.350-7.450); BG PO2 49.9 mmHg (75.0-100.0); BG SAMPLE SITE RIGHT RADIAL; BG TOTAL HEMOGLOBIN 16.1 g/dL (12.0-18.0); BG VENT MODE ROOM AIR
[2020-08-28 12:33] VITALS: BP 114/69
[2020-08-28] MEDS: BUDESONIDE 0.5MG/2ML NEB HHN SCH ×2 (13:10→21:41)
[2020-08-28 16:00] VITALS: BP 120/65
[2020-08-28] MEDS: MONTELUKAST SODIUM 10MG TABLET PO SCH (17:19)
[2020-08-28 20:00] VITALS: BP 120/73
[2020-08-28] MEDS: FAMOTIDINE 20MG TABLET PO SCH (20:29)
[2020-08-29] VITALS (7 sets, daily range): BP systolic 110–130; BP diastolic 60–80
[2020-08-29] MEDS: ALBUTEROL (0.083%) 2.5MG/3ML NEB HHN SCH ×4 (03:07→21:44)
[2020-08-29] MEDS: METHYLPREDNISOLONE SOD SUCC 40 MG/ML VIAL IV SCH ×3 (05:29→18:00)
[2020-08-29] MEDS: ENOXAPARIN 40MG/0.4ML SYR SUBCUT SCH (09:12)
[2020-08-29] MEDS: BUDESONIDE 0.5MG/2ML NEB HHN SCH ×2 (09:43)
[2020-08-29] MEDS ORDERED: ALBU6.7H11 INH (10:58)
[2020-08-29] MEDS ORDERED: FLUT1DIS3 INH (10:58)
[2020-08-29] MEDS ORDERED: P20 MT (10:58)
[2020-08-29] MEDS: MONTELUKAST SODIUM 10MG TABLET PO SCH (18:38)
[2020-08-29] MEDS: FAMOTIDINE 20MG TABLET PO SCH (21:16)
[2020-08-30] VITALS: BP 110/56
[2020-08-30] MEDS: METHYLPREDNISOLONE SOD SUCC 40 MG/ML VIAL IV SCH ×3 (02:51→18:31)
[2020-08-30] MEDS: ALBUTEROL (0.083%) 2.5MG/3ML NEB HHN SCH ×4 (03:36→21:22)
[2020-08-30 04:00] VITALS: BP 117/62
[2020-08-30 08:00] VITALS: BP 115/55
[2020-08-30] MEDS: IPRATROPIUM/ALBUTEROL 0.5-3(2.5)MG/3ML NEB HHN SCH (08:04)
[2020-08-30] MEDS: BUDESONIDE 0.5MG/2ML NEB HHN SCH (08:08)
[2020-08-30] MEDS: ENOXAPARIN 40MG/0.4ML SYR SUBCUT SCH (09:08)
[2020-08-30 12:00] VITALS: BP 112/61
[2020-08-30 16:00] VITALS: BP 118/65
[2020-08-30] MEDS: MONTELUKAST SODIUM 10MG TABLET PO SCH (18:35)
[2020-08-30 20:00] VITALS: BP 102/66
[2020-08-30] MEDS: FAMOTIDINE 20MG TABLET PO SCH (20:49)
[2020-08-31] VITALS: BP 118/62
[2020-08-31] MEDS: ALBUTEROL (0.083%) 2.5MG/3ML NEB HHN SCH ×4 (01:46→20:22)
[2020-08-31] MEDS: METHYLPREDNISOLONE SOD SUCC 40 MG/ML VIAL IV SCH ×2 (02:08→10:43)
[2020-08-31 04:00] VITALS: BP 116/59
[2020-08-31 08:30] VITALS: BP 149/80
[2020-08-31] MEDS: ENOXAPARIN 40MG/0.4ML SYR SUBCUT SCH (09:23)
[2020-08-31 16:29] VITALS: BP 128/65
[2020-08-31] MEDS: MONTELUKAST SODIUM 10MG TABLET PO SCH (17:26)
[2020-08-31] MEDS: PREDNISONE 20MG TABLET PO SCH (17:26)
[2020-08-31 20:00] VITALS: BP 142/74
[2020-08-31] MEDS: FAMOTIDINE 20MG TABLET PO SCH (21:34)
[2020-09-01] VITALS: BP 112/58
[2020-09-01] MEDS: ALBUTEROL (0.083%) 2.5MG/3ML NEB HHN SCH ×4 (01:30→21:36)
[2020-09-01 04:00] VITALS: BP 134/77
[2020-09-01] MEDS: HYDROCODONE/ACETAMINOPHEN 5/325MG TABLET PO PRN (06:30)
[2020-09-01 08:00] VITALS: BP 129/69
[2020-09-01] MEDS: PREDNISONE 20MG TABLET PO SCH ×2 (10:03→17:46)
[2020-09-01] MEDS: ENOXAPARIN 40MG/0.4ML SYR SUBCUT SCH (10:03)
[2020-09-01 12:00] VITALS: BP 136/63
[2020-09-01 16:00] VITALS: BP 122/63
[2020-09-01] MEDS: MONTELUKAST SODIUM 10MG TABLET PO SCH (17:46)
[2020-09-01 20:02] VITALS: BP 142/80
[2020-09-01] MEDS: FAMOTIDINE 20MG TABLET PO SCH (20:30)
[2020-09-01] MEDS: IPRATROPIUM/ALBUTEROL 0.5-3(2.5)MG/3ML NEB HHN SCH (21:34)
[2020-09-02] VITALS (7 sets, daily range): BP systolic 110–137; BP diastolic 61–79
[2020-09-02] MEDS: IPRATROPIUM/ALBUTEROL 0.5-3(2.5)MG/3ML NEB HHN SCH (01:03)
[2020-09-02] MEDS: ALBUTEROL (0.083%) 2.5MG/3ML NEB HHN SCH ×4 (01:03→20:40)
[2020-09-02] MEDS: HYDROCODONE/ACETAMINOPHEN 5/325MG TABLET PO PRN ×2 (05:03→20:43)
[2020-09-02 06:05] LABS: CHLORIDE 97 mEq/L (98-107)
[2020-09-02 06:23] LABS: HEMATOCRIT. 41.9 % (42.0-52.0); HEMOGLOBIN. 14.6 g/dL (14.0-18.0); MEAN CORPUSCULAR HEMOGLOBIN 33.7 pg (28.0-32.0); MEAN CORPUSCULAR VOLUME 96.4 fL (80.0-94.0); PLATELET 194 x1000/uL (130-400); RED BLOOD CELL COUNT 4.35 mill/uL (4.7-6.1); RED CELL DISTRIBUTION WIDTH 13.7 % (11.6-14.6)
[2020-09-02] MEDS: PREDNISONE 20MG TABLET PO SCH ×2 (09:48→17:06)
[2020-09-02] MEDS: ENOXAPARIN 40MG/0.4ML SYR SUBCUT SCH (09:48)
[2020-09-02 16:54] LABS: PLATELET ESTIMATE NORMAL
[2020-09-02] MEDS: MONTELUKAST SODIUM 10MG TABLET PO SCH (17:06)
[2020-09-02 18:57] LABS: BG BASE EXCESS 4.1 mmol/L (-2.0-2.0); BG CARBOXYHEMOGLOBIN 0.2 % (0.5-1.5); BG DEOXYHEMOGLOBIN 12.1 % (0.0-5.0); BG FRACTION INSPIRED OXYGEN 21; BG HCO3 ACT 28.5 mmol/L (22.0-26.0); BG METHEMOGLOBIN 0.2 % (0.0-1.5); BG OXYGEN SATURATION 87.9 % (92.0-98.5); BG OXYHEMOGLOBIN 87.5 % (94.0-97.0); BG PCO2 41.7 mmHg (35.0-45.0); BG PH 7.453 (7.350-7.450); BG PO2 53.1 mmHg (75.0-100.0); BG SAMPLE SITE RIGHT BRACHIAL; BG TOTAL HEMOGLOBIN 16.1 g/dL (12.0-18.0); BG VENT MODE ROOM AIR
[2020-09-02] MEDS: FAMOTIDINE 20MG TABLET PO SCH (20:43)
[2020-09-03] MEDS: ALBUTEROL (0.083%) 2.5MG/3ML NEB HHN SCH (01:31)
[2020-09-03 04:00] VITALS: BP 132/74
[2020-09-03 08:00] VITALS: BP 123/78
[2020-09-03] MEDS: IPRATROPIUM/ALBUTEROL 0.5-3(2.5)MG/3ML NEB HHN SCH (09:40)
[2020-09-03] MEDS: PREDNISONE 20MG TABLET PO SCH (09:52)
[2020-09-03] MEDS: ENOXAPARIN 40MG/0.4ML SYR SUBCUT SCH (09:53)
[2020-09-03 12:00] VITALS: BP 134/70
== END 2020-09-03 14:35 | disposition left against medical advice (07) | DRG 189 ==
LOC: ER 09:44 → EDBEDREQ 10:03 → 8WST 13:10 → EDBEDREQTM 21:55 → EDBEDREQ 21:55 → ENRESERV 23:54
PROVIDERS: ADMIT Internal Medicine; ATTEND Internal Medicine
DX: J96.01 Acute respiratory failure with hypoxia (principal); J44.1 Chronic obstructive pulmonary disease with (acute) exacerbation; E44.1 Mild protein-calorie malnutrition; Z68.1 Body mass index [BMI] 19.9 or less, adult; I48.0 Paroxysmal atrial fibrillation; Z87.891 Personal history of nicotine dependence; I10 Essential (primary) hypertension; F12.90 Cannabis use, unspecified, uncomplicated; D72.10 Eosinophilia, unspecified; Z53.29 Procedure and treatment not carried out because of patient's decision for other reasons; B19.20 Unspecified viral hepatitis C without hepatic coma
CPT/HCPCS: 36415; 36600; 71045; 80048; 80053; 80305; 81003; 82375; 82805; 83605; 83880; 84145; 84484; 85025; 93005; 94640; 94644; 99291; C1893; J1650; J1956; J2920; J2930; J3475; J7040; J7512; J7626

== ENCOUNTER 2021-01-13 12:42 | Inpatient (IN) | payer MEDICARE, MEDICAID ==
[~2021-01-13] VITALS: Ht 177.8 cm; Wt 65.3 kg
[~2021-01-13 12:42] MED LIST changes: -ALBU6.7H11 INH; +ALBU6.7H15 INH; +FLUT1DIS3 INH; +P20 MT
[2021-01-13 15:58] LABS: BASOPHILS % 1.3 % (0.0-2.0); EOSINOPHILS % 10.4 % (0.0-5.0); HEMATOCRIT. 48.2 % (42.0-52.0); HEMOGLOBIN. 16.3 g/dL (14.0-18.0); LYMPHOCYTES % 34.7 % (20.0-50.0); MEAN CORPUSCULAR VOLUME 97.7 fL (80.0-94.0); MEAN PLATELET VOLUME 10.1 fl (7.4-10.4); MONOCYTES % 13.4 % (2.0-8.0); NEUTROPHILS % 40.2 % (40.0-76.0); PLATELET 172 x1000/uL (130-400); RED BLOOD CELL COUNT 4.93 mill/uL (4.7-6.1); RED CELL DISTRIBUTION WIDTH 13.6 % (11.6-14.6)
[2021-01-13 16:02] LABS: CHLORIDE 100 mEq/L (98-107)
[2021-01-13 16:06] LABS: ETHANOL BLOOD < 10 mg/dL
[2021-01-13 16:08] LABS: BG BASE EXCESS 5.8 mmol/L (-2.0-2.0); BG CARBOXYHEMOGLOBIN 3.9 % (0.5-1.5); BG DEOXYHEMOGLOBIN 14.6 % (0.0-5.0); BG HCO3 ACT 33.4 mmol/L (22.0-26.0); BG METHEMOGLOBIN 0.1 % (0.0-1.5); BG OXYGEN SATURATION 84.8 % (92.0-98.5); BG OXYHEMOGLOBIN 81.4 % (94.0-97.0); BG PCO2 59.4 mmHg (35.0-45.0); BG PH 7.368 (7.350-7.450); BG PO2 48.2 mmHg (75.0-100.0); BG SAMPLE SITE RIGHT BRACHIAL; BG TOTAL HEMOGLOBIN 16.7 g/dL (12.0-18.0); BG VENT MODE ROOM AIR
[2021-01-13] MEDS ORDERED: ALBUTEROL (0.083%) 2.5MG/3ML NEB HHN STA (16:33)
[2021-01-13] MEDS ORDERED: IPRATROPIUM BROMIDE (0.02%) 0.5MG/2.5ML NEB HHN STA (16:33)
[2021-01-13] MEDS ORDERED: METHYLPREDNISOLONE SOD SUCC 125 MG/2 ML VIAL IV STA (16:33)
[2021-01-13] MEDS ORDERED: ALBUTEROL (0.083%) 2.5MG/3ML NEB ONE (17:09)
[2021-01-13 17:48] LABS: *AMPHETAMINES SCREEN URINE NEGATIVE (NEGATIVE); *BARBITURATES SCREEN URINE NEGATIVE (NEGATIVE); *BENZODIAZEPINES SCREEN URINE NEGATIVE (NEGATIVE); *COCAINE SCREEN URINE NEGATIVE (NEGATIVE)
[2021-01-13 17:49] LABS: CANNABINOID URINE SCREEN NEGATIVE (NEGATIVE); METHADONE URINE SCREEN NEGATIVE (NEGATIVE); OPIATES URINE SCREEN NEGATIVE (NEGATIVE); PHENCYCLIDINE URINE SCREEN NEGATIVE (NEGATIVE)
[2021-01-13] MEDS ORDERED: CEFTRIAXONE 1 G PREMIX 50 ML IV ONE (18:45)
[2021-01-13] MEDS ORDERED: GUAIFENESIN 200MG/10ML SUGAR FREE UDC PO PRN (19:45)
[2021-01-13] MEDS ORDERED: IPRATROPIUM/ALBUTEROL 0.5-3(2.5)MG/3ML NEB HHN PRN (19:45)
[2021-01-13] MEDS ORDERED: MAGNESIUM/ALUMINUM HYDROXIDE/SIMETHICONE 30ML UDC PO PRN (19:45)
[2021-01-13] MEDS ORDERED: ONDANSETRON HCL 4MG/2ML INJ IV PRN (19:45)
[2021-01-13] MEDS ORDERED: CLONIDINE 0.1MG TABLET PO PRN (19:45)
[2021-01-13] MEDS ORDERED: ACETAMINOPHEN 325MG TABLET PO PRN (19:45)
[2021-01-13] MEDS: IPRATROPIUM/ALBUTEROL 0.5-3(2.5)MG/3ML NEB HHN SCH (19:50)
[2021-01-13] MEDS: METHYLPREDNISOLONE SOD SUCC 125 MG/2 ML VIAL IV SCH (20:05)
[2021-01-13] MEDS ORDERED: NALOXONE HCL 0.4MG/ML VIAL IV PRN (20:45)
[2021-01-13] MEDS ORDERED: ENOXAPARIN 30MG/0.3ML SYR SUBCUT SCH (21:00)
[2021-01-13 22:00] VITALS: BP 123/74
[2021-01-13 23:00] VITALS: BP 123/74
[2021-01-14] VITALS: BP 115/65
[2021-01-14] MEDS: IPRATROPIUM/ALBUTEROL 0.5-3(2.5)MG/3ML NEB HHN SCH ×4 (01:50→20:39)
[2021-01-14] MEDS: METHYLPREDNISOLONE SOD SUCC 125 MG/2 ML VIAL IV SCH ×4 (01:55→21:42)
[2021-01-14] MEDS ORDERED: TIOT18CA3 IH (03:30)
[2021-01-14 04:00] VITALS: BP 109/64
[2021-01-14 08:00] VITALS: BP 95/71
[2021-01-14] MEDS: AMLODIPINE 10MG TABLET PO SCH (09:00)
[2021-01-14 09:11] LABS: BASOPHILS % 0.1 % (0.0-2.0); HEMATOCRIT. 50.4 % (42.0-52.0); HEMOGLOBIN. 16.8 g/dL (14.0-18.0); LYMPHOCYTES % 18.5 % (20.0-50.0); MEAN CORPUSCULAR VOLUME 98.7 fL (80.0-94.0); MEAN PLATELET VOLUME 10.4 fl (7.4-10.4); MONOCYTES % 1.1 % (2.0-8.0); NEUTROPHILS % 80.3 % (40.0-76.0); PLATELET 181 x1000/uL (130-400); RED BLOOD CELL COUNT 5.11 mill/uL (4.7-6.1); RED CELL DISTRIBUTION WIDTH 13.8 % (11.6-14.6)
[2021-01-14 09:16] LABS: CHLORIDE 95 mEq/L (98-107)
[2021-01-14 09:40] LABS: BG BASE EXCESS 0.9 mmol/L (-2.0-2.0); BG CARBOXYHEMOGLOBIN 1.9 % (0.5-1.5); BG DEOXYHEMOGLOBIN 12.2 % (0.0-5.0); BG FRACTION INSPIRED OXYGEN 21; BG METHEMOGLOBIN 0.3 % (0.0-1.5); BG OXYGEN SATURATION 87.5 % (92.0-98.5); BG OXYHEMOGLOBIN 85.6 % (94.0-97.0); BG PCO2 47.6 mmHg (35.0-45.0); BG PH 7.371 (7.350-7.450); BG PO2 55.3 mmHg (75.0-100.0); BG SAMPLE SITE RIGHT RADIAL; BG TOTAL HEMOGLOBIN 17.7 g/dL (12.0-18.0); BG VENT MODE ROOM AIR
[2021-01-14 12:00] VITALS: BP 119/81
[2021-01-14] MEDS ORDERED: INFLUENZA VACCINE 05/PF 0.5 ML SYRINGE IM ONE (12:00)
[2021-01-14 16:00] VITALS: BP 112/64
[2021-01-14 20:00] VITALS: BP 121/64
[2021-01-14] MEDS: ENOXAPARIN 40MG/0.4ML SYR SUBCUT SCH (21:42)
[2021-01-14] MEDS: HYDROCODONE/ACETAMINOPHEN 5/325MG TABLET PO PRN (21:43)
[2021-01-15] VITALS: BP 106/59
[2021-01-15] MEDS: IPRATROPIUM/ALBUTEROL 0.5-3(2.5)MG/3ML NEB HHN SCH ×4 (00:55→21:30)
[2021-01-15] MEDS: PIPERACILLIN/TAZOBACTAM 3.375 G in DEXTROSE 5% WATER 50 ML IV SCH ×4 (01:26→21:10)
[2021-01-15] MEDS: METHYLPREDNISOLONE SOD SUCC 125 MG/2 ML VIAL IV SCH (01:26)
[2021-01-15 04:00] VITALS: BP 107/57
[2021-01-15 08:00] VITALS: BP 100/49
[2021-01-15] MEDS: AMLODIPINE 10MG TABLET PO SCH (09:00)
[2021-01-15] MEDS: METHYLPREDNISOLONE SOD SUCC 40 MG/ML VIAL IV SCH ×3 (09:45→21:09)
[2021-01-15 12:00] VITALS: BP 117/63
[2021-01-15] MEDS: GUAIFENESIN 600MG ER TABLET PO SCH ×2 (12:00→21:10)
[2021-01-15] MEDS: DOCUSATE SODIUM 100MG CAPSULE PO PRN (13:42)
[2021-01-15] MEDS: TAMSULOSIN HCL 0.4MG SR CAPSULE PO SCH (15:38)
[2021-01-15] MEDS: HYDROCODONE/ACETAMINOPHEN 5/325MG TABLET PO PRN (15:40)
[2021-01-15 16:00] VITALS: BP 110/66
[2021-01-15 20:00] VITALS: BP 119/69
[2021-01-15] MEDS: ENOXAPARIN 40MG/0.4ML SYR SUBCUT SCH (21:09)
[2021-01-16] VITALS: BP 138/78
[2021-01-16] MEDS: IPRATROPIUM/ALBUTEROL 0.5-3(2.5)MG/3ML NEB HHN SCH ×3 (01:20→16:17)
[2021-01-16 04:00] VITALS: BP 144/78
[2021-01-16] MEDS: PIPERACILLIN/TAZOBACTAM 3.375 G in DEXTROSE 5% WATER 50 ML IV SCH ×3 (05:18→22:20)
[2021-01-16] MEDS: HYDROCODONE/ACETAMINOPHEN 5/325MG TABLET PO PRN (05:18)
[2021-01-16] MEDS: METHYLPREDNISOLONE SOD SUCC 40 MG/ML VIAL IV SCH ×3 (05:18→22:20)
[2021-01-16 08:00] VITALS: BP 129/65
[2021-01-16] MEDS: TAMSULOSIN HCL 0.4MG SR CAPSULE PO SCH ×2 (09:10→22:20)
[2021-01-16] MEDS: GUAIFENESIN 600MG ER TABLET PO SCH ×2 (09:10→22:20)
[2021-01-16] MEDS: AMLODIPINE 10MG TABLET PO SCH (09:10)
[2021-01-16 12:00] VITALS: BP 130/85
[2021-01-16 15:03] LABS: CLARITY URINE CLEAR (CLEAR); COLOR URINE ORANGE (YELLOW); KETONES URINE NEGATIVE (NEGATIVE); LEUKOCYTE ESTERASE URINE NEGATIVE (NEGATIVE); NITRITE URINE NEGATIVE (NEGATIVE); OCCULT BLOOD URINE 3+ (NEGATIVE); PH URINE 5.5 (4.5-8.0); PROTEIN URINE TRACE (NEGATIVE); SPECIFIC GRAVITY URINE 1.014 (1.005-1.030); UROBILINOGEN URINE 0.2 E.U./dL (0.2-1.0)
[2021-01-16 16:00] VITALS: BP 107/72
[2021-01-16] MEDS: DUTASTERIDE 0.5MG CAPSULE PO SCH (16:16)
[2021-01-16 20:00] VITALS: BP 105/61
[2021-01-16] MEDS: ENOXAPARIN 40MG/0.4ML SYR SUBCUT SCH (21:00)
[2021-01-17] VITALS: BP 97/54
[2021-01-17 04:00] VITALS: BP 102/54
[2021-01-17] MEDS: IPRATROPIUM/ALBUTEROL 0.5-3(2.5)MG/3ML NEB HHN SCH ×3 (04:06→14:59)
[2021-01-17] MEDS: METHYLPREDNISOLONE SOD SUCC 40 MG/ML VIAL IV SCH ×3 (05:57→21:06)
[2021-01-17] MEDS: PIPERACILLIN/TAZOBACTAM 3.375 G in DEXTROSE 5% WATER 50 ML IV SCH ×3 (05:57→21:10)
[2021-01-17 08:00] VITALS: BP 101/53
[2021-01-17] MEDS: GUAIFENESIN 600MG ER TABLET PO SCH ×2 (08:55→21:09)
[2021-01-17] MEDS: AMLODIPINE 10MG TABLET PO SCH (08:55)
[2021-01-17] MEDS: TAMSULOSIN HCL 0.4MG SR CAPSULE PO SCH ×2 (08:56→21:09)
[2021-01-17] MEDS: DOCUSATE SODIUM 100MG CAPSULE PO PRN (08:56)
[2021-01-17] MEDS: DUTASTERIDE 0.5MG CAPSULE PO SCH (08:59)
[2021-01-17 12:16] VITALS: BP 110/60
[2021-01-17 16:16] VITALS: BP 107/54
[2021-01-17 20:00] VITALS: BP 103/81
[2021-01-17] MEDS: ENOXAPARIN 40MG/0.4ML SYR SUBCUT SCH (21:10)
[2021-01-18] VITALS: BP 119/66
[2021-01-18] MEDS: IPRATROPIUM/ALBUTEROL 0.5-3(2.5)MG/3ML NEB HHN SCH ×4 (03:44→20:39)
[2021-01-18 04:06] VITALS: BP 129/64
[2021-01-18] MEDS: METHYLPREDNISOLONE SOD SUCC 40 MG/ML VIAL IV SCH ×3 (06:12→21:21)
[2021-01-18] MEDS: PIPERACILLIN/TAZOBACTAM 3.375 G in DEXTROSE 5% WATER 50 ML IV SCH ×3 (06:13→21:22)
[2021-01-18 08:21] VITALS: BP 118/68
[2021-01-18] MEDS: AMLODIPINE 10MG TABLET PO SCH (08:25)
[2021-01-18] MEDS: TAMSULOSIN HCL 0.4MG SR CAPSULE PO SCH ×2 (08:25→21:22)
[2021-01-18] MEDS: DUTASTERIDE 0.5MG CAPSULE PO SCH (08:25)
[2021-01-18] MEDS: GUAIFENESIN 600MG ER TABLET PO SCH ×2 (08:26→21:22)
[2021-01-18 12:30] VITALS: BP 118/62
[2021-01-18 16:07] LABS: BG BASE EXCESS 8.9 mmol/L (-2.0-2.0); BG CARBOXYHEMOGLOBIN 0.3 % (0.5-1.5); BG DEOXYHEMOGLOBIN 12.1 % (0.0-5.0); BG FRACTION INSPIRED OXYGEN 21; BG HCO3 ACT 35.8 mmol/L (22.0-26.0); BG METHEMOGLOBIN 0.3 % (0.0-1.5); BG OXYGEN SATURATION 87.8 % (92.0-98.5); BG OXYHEMOGLOBIN 87.3 % (94.0-97.0); BG PCO2 57.1 mmHg (35.0-45.0); BG PH 7.415 (7.350-7.450); BG PO2 53.3 mmHg (75.0-100.0); BG SAMPLE SITE LEFT BRACHIAL; BG TOTAL HEMOGLOBIN 15.6 g/dL (12.0-18.0); BG VENT MODE ROOM AIR
[2021-01-18 16:30] VITALS: BP 120/70
[2021-01-18 20:00] VITALS: BP 108/67
[2021-01-18] MEDS: ENOXAPARIN 40MG/0.4ML SYR SUBCUT SCH (21:22)
[2021-01-19] VITALS: BP 117/57
[2021-01-19] MEDS: IPRATROPIUM/ALBUTEROL 0.5-3(2.5)MG/3ML NEB HHN SCH ×2 (01:37→08:57)
[2021-01-19 04:00] VITALS: BP 105/53
[2021-01-19] MEDS: PIPERACILLIN/TAZOBACTAM 3.375 G in DEXTROSE 5% WATER 50 ML IV SCH (05:50)
[2021-01-19] MEDS: METHYLPREDNISOLONE SOD SUCC 40 MG/ML VIAL IV SCH (05:50)
[2021-01-19 06:52] LABS: HEMATOCRIT. 44.8 % (42.0-52.0); HEMOGLOBIN. 14.9 g/dL (14.0-18.0); MEAN CORPUSCULAR HEMOGLOBIN 33.1 pg (28.0-32.0); MEAN CORPUSCULAR VOLUME 99.7 fL (80.0-94.0); MEAN PLATELET VOLUME 10.4 fl (7.4-10.4); PLATELET 157 x1000/uL (130-400); RED BLOOD CELL COUNT 4.49 mill/uL (4.7-6.1); RED CELL DISTRIBUTION WIDTH 13.4 % (11.6-14.6)
[2021-01-19 07:04] LABS: CHLORIDE 98 mEq/L (98-107)
[2021-01-19 08:00] VITALS: BP 124/73
[2021-01-19] MEDS: GUAIFENESIN 600MG ER TABLET PO SCH (08:18)
[2021-01-19] MEDS: AMLODIPINE 10MG TABLET PO SCH (08:19)
[2021-01-19] MEDS: TAMSULOSIN HCL 0.4MG SR CAPSULE PO SCH (08:19)
[2021-01-19] MEDS: DUTASTERIDE 0.5MG CAPSULE PO SCH (08:20)
[2021-01-19 12:00] VITALS: BP 111/54
[2021-01-19 12:28] VITALS: BP 111/54
[2021-01-19 19:38] LABS: PLATELET ESTIMATE NORMAL
== END 2021-01-19 13:20 | disposition home or self-care (01) | DRG 189 ==
LOC: ER 12:42 → MICUSO 18:33 → EDBEDREQTM 18:38 → EDBEDREQSVC 18:38 → EDBEDREQ 18:38 → 6WST 20:32
PROVIDERS: ADMIT Hospitalist; ATTEND Hospitalist
DX: J96.21 Acute and chronic respiratory failure with hypoxia (principal); J44.1 Chronic obstructive pulmonary disease with (acute) exacerbation; R78.81 Bacteremia; F03.90 Unspecified dementia, unspecified severity, without behavioral disturbance, psychotic disturbance, mood disturbance, and anxiety; I10 Essential (primary) hypertension; R74.01 Elevation of levels of liver transaminase levels; Z60.2 Problems related to living alone; R33.9 Retention of urine, unspecified; Z20.822 Contact with and (suspected) exposure to COVID-19; I95.9 Hypotension, unspecified; Z79.899 Other long term (current) drug therapy; Z86.19 Personal history of other infectious and parasitic diseases; Z87.891 Personal history of nicotine dependence
CPT/HCPCS: 36415; 36600; 71045; 80048; 80053; 80305; 80320; 81003; 82375; 82805; 83880; 84484; 85025; 87077; 87426; 90686; 93005; 93970; 94640; 99285; J0696; J1650; J2543; J2920; J2930; J7060; A4315; G0480

== ENCOUNTER 2021-02-07 15:08 | Emergency (ER) | payer MEDICARE, MEDICAID ==
[~2021-02-07] VITALS: Ht 177.8 cm; Wt 61.0 kg
[~2021-02-07 15:08] MED LIST changes: -ALBU6.7H15 INH; -FAMO20TA8 PO; -GUAI600T26 MT; -P20 MT; +TIOT18CA3 IH
[2021-02-07 19:45] LABS: CLARITY URINE TURBID (CLEAR); COLOR URINE RED (YELLOW); KETONES URINE NEGATIVE (NEGATIVE); LEUKOCYTE ESTERASE URINE 2+ (NEGATIVE); NITRITE URINE NEGATIVE (NEGATIVE); OCCULT BLOOD URINE 3+ (NEGATIVE); PH URINE 8.5 (4.5-8.0); PROTEIN URINE 2+ (NEGATIVE); SPECIFIC GRAVITY URINE 1.019 (1.005-1.030)
[2021-02-07 20:47] LABS: BASOPHILS % 0.9 % (0.0-2.0); EOSINOPHILS % 0.3 % (0.0-5.0); HEMATOCRIT. 44.1 % (42.0-52.0); HEMOGLOBIN. 14.9 g/dL (14.0-18.0); LYMPHOCYTES % 8.9 % (20.0-50.0); MEAN CORPUSCULAR HEMOGLOBIN 32.2 pg (28.0-32.0); MEAN CORPUSCULAR VOLUME 95.6 fL (80.0-94.0); MEAN PLATELET VOLUME 9.1 fl (7.4-10.4); MONOCYTES % 10.4 % (2.0-8.0); NEUTROPHILS % 79.5 % (40.0-76.0); PLATELET 189 x1000/uL (130-400); RED BLOOD CELL COUNT 4.61 mill/uL (4.7-6.1); RED CELL DISTRIBUTION WIDTH 13.5 % (11.6-14.6)
[2021-02-07 20:55] LABS: CHLORIDE 104 mEq/L (98-107)
[2021-02-07] MEDS ORDERED: CIPR500T5 MT (21:07)
[2021-02-07 21:30] VITALS: BP 148/95
== END 2021-02-07 21:40 | disposition home or self-care (01) ==
LOC: ER 15:08
DX: R31.9 Hematuria, unspecified (principal); J44.9 Chronic obstructive pulmonary disease, unspecified; I10 Essential (primary) hypertension; Z98.890 Other specified postprocedural states; Z79.899 Other long term (current) drug therapy
CPT/HCPCS: 36415; 80053; 81003; 85025; 99284; A4315

== ENCOUNTER 2021-03-08 12:04 | Emergency (ER) | payer MEDICARE, MEDICAID ==
[~2021-03-08] VITALS: Ht 177.8 cm; Wt 60.0 kg
[~2021-03-08 12:04] MED LIST changes: +CIPR500T5 MT
[2021-03-08 12:34] VITALS: BP 144/77
[2021-03-08] MEDS ORDERED: ALFU10TA9 MT (15:49)
[2021-03-08 15:57] LABS: CLARITY URINE TURBID (CLEAR); COLOR URINE DARK YELLOW (YELLOW); KETONES URINE NEGATIVE (NEGATIVE); LEUKOCYTE ESTERASE URINE 3+ (NEGATIVE); NITRITE URINE NEGATIVE (NEGATIVE); OCCULT BLOOD URINE 2+ (NEGATIVE); PH URINE 7.5 (4.5-8.0); PROTEIN URINE 2+ (NEGATIVE); SPECIFIC GRAVITY URINE 1.015 (1.005-1.030)
== END 2021-03-08 16:05 | disposition home or self-care (01) ==
LOC: ER 12:04
DX: N34.2 Other urethritis (principal); R33.9 Retention of urine, unspecified; I10 Essential (primary) hypertension; J44.9 Chronic obstructive pulmonary disease, unspecified; G62.9 Polyneuropathy, unspecified; Z98.890 Other specified postprocedural states; Z86.19 Personal history of other infectious and parasitic diseases
CPT/HCPCS: 81003; 99283

== ENCOUNTER 2021-03-14 08:58 | Emergency (ER) | payer MEDICARE, MEDICAID ==
[~2021-03-14] VITALS: Ht 167.6 cm; Wt 71.0 kg
[~2021-03-14 08:58] MED LIST changes: +ALFU10TA9 MT
[2021-03-14] MEDS ORDERED: HYDROCODONE/ACETAMINOPHEN 10/325MG TABLET PO ONE (10:00)
[2021-03-14] MEDS ORDERED: HYDR-4001 MT ×3 (15:56→16:18)
[2021-03-14 16:33] VITALS: BP 122/78
== END 2021-03-14 16:40 | disposition home or self-care (01) ==
LOC: ER 09:09
DX: M54.50 Low back pain, unspecified (principal); M25.551 Pain in right hip; J44.9 Chronic obstructive pulmonary disease, unspecified; I10 Essential (primary) hypertension; Z98.890 Other specified postprocedural states; Z79.899 Other long term (current) drug therapy
CPT/HCPCS: 72131; 73502; 93005; 99285